=== PATIENT | female | born 1960 | race Caucasian/White ===

== ENCOUNTER 2020-03-21 18:43 | IRF | payer OTHER, SELFPAY ==
--- NOTE | ~2020-03-21 | US_ITS ---
EXAMINATION: US venous doppler [facility] DATE: 03/29/2020 18:10 INDICATION: Lower limb pain and swelling TECHNIQUE: Grayscale ultrasound images without and with compression and Doppler ultrasound images of the bilateral lower extremity veins were obtained. COMPARISON: None. FINDINGS: The visualized portions of right common femoral vein, profunda (deep) femoral vein, femoral vein, pop liteal vein, posterior tibial veins, peroneal veins, gastrocnemius vein and greater saphenous vein ou tflow are patent. The visualized portions of left common femoral vein, profunda femoral vein, femoral vein, popliteal v ein, gastrocnemius vein and greater saphenous vein outflow are patent. The veins at the left calf wer e unable to be visualized due to bandaging material. IMPRESSION: 1. No deep venous thrombosis in either lower limb. Reviewed, dictated and finalized at location A.
--- NOTE | ~2020-03-21 | XR_ITS ---
XR chest 1V portable 03/23/2020 21:20 Indication: Chest pain and shortness of breath Procedure: AP portable chest Comparison: No prior studies for comparison. Findings: Heart size is normal. No focal air space disease, pulmonary edema, pleural effusion or susp ected pneumothorax. There are Cheng rods in the lower thoracic spine. Chronic healed left rib fr acture. Impression: 1: No acute cardiopulmonary disease. Reviewed, dictated and finalized at location A. Impression: 1: No acute cardiopulmonary disease.
--- NOTE | ~2020-03-21 | US_ITS ---
US renal BI DATE: 03/31/2020 12:24 INDICATION: Elevated serum creatinine TECHNIQUE: Real-time imaging of the kidneys and urinary bladder COMPARISON: None FINDINGS: Right kidney measures approximately 11 cm length, left kidney approximately 10 cm length. There is generalized parenchymal thinning of the kidneys consistent with bilateral renal atrophy. No evidence of renal mass lesion is detected. There is no hydronephrosis of either kidney. IMPRESSION: No evidence of obstructive uropathy Bilateral renal atrophy Reviewed, dictated and finalized at Location A. Reviewed, dictated and finalized at location A.
[2020-03-21 18:44] VITALS: BP 127/58; PULSE 66; RESP 17; TEMP 36.8; O2SAT 100; BMI 33.0
--- NOTE | 2020-03-21 18:53 | ADMGEN ---
This patient, Mckenzie Guevara, was admitted to [facility] Room 226-01. Patient/family oriented to hospital policies and general routines including ID bracelet, bed and alarms, visiting hours, pain management, procedures, bathroom and other care routines, personal items, smoking policy, room service/diet, and visiting hours. Valuables list has been completed. Information on how to activate the Rapid Response Team has been discussed. Patient/Family are encouraged to report perceived risks to care and to ask questions if they do not understand what they are told or what they should do.
[2020-03-21] MEDS: ALPRAZOLAM 0.5 MG TABLET 1 MG PO (21:00)
[2020-03-21] MEDS: SENNA/DOCUSATE SODIUM TABLET 1 TAB PO (21:01)
[2020-03-21] MEDS: FERROUS SULFATE 324 MG TABLET PO (21:02)
[2020-03-21] MEDS: INSULIN GLARGINE (*BKC) 100 UNITS/ML 24 UNITS SUB-Q (21:03)
[2020-03-21 21:18] LABS: Glucose Point of Care 195 (65-105)
[2020-03-21 22:00] VITALS: BP 125/69; PULSE 68; RESP 18; TEMP 37; O2SAT 98
[2020-03-22 04:38] LABS: Basophils Absolute Auto 0.1 K/mm3 (0.0-0.1); Basophils Percent Auto 0.8 % (0.2-1.2); Eosinophils Absolute Auto 0.9 K/mm3 (0-0.3); Eosinophils Percent Auto 9.1 % (0-4.4); Hematocrit 28.9 % (37.0-47.0); Hemoglobin 8.5 g/dL (12.0-15.0); Immature Granulocyte Absolute 0.11 K/mm3 (0.00-0.031); Immature Granulocyte Percent A 1.1 % (0-0.5); Lymphocytes Absolute Auto 4.54 K/mm3 (0.9-3.2); Lymphocytes Percent Auto 45.4 % (18.3-44.2); Mean Corpuscular HGB Conc 29.4 g/dl (32-36); Mean Corpuscular Hemoglobin 24.9 pg (26-34); Mean Corpuscular Volume 84.8 fl (80-100); Mean Platelet Volume 10.9 fl (7.4-10.4); Monocytes Percent Auto 9.7 % (2.6-8.5); Neutrophils Absolute Auto 3.4 K/mm3 (1.3-6.7); Neutrophils Percent Auto 33.9 % (45.5-73.1); Platelet Count Result 307 k/mm3 (150-375); Red Blood Count 3.41 M/mm3 (4.2-5.4); Red Cell Distribution Width 15.6 % (11.5-14.5)
[2020-03-22 04:49] LABS: Blood Urea Nitrogen 37 mg/dL (7-17); Calcium 8.3 mg/dL (8.4-10.2); Carbon Dioxide 27 mmol/L (22-30); Chloride 109 mmol/L (98-107); Estimated CRCL calculation 41 ml/min; Estimated Glomerular Filt Rate 29; Glucose 184 mg/dL (65-105); Potassium 4.4 mmol/L (3.4-5.0); Sodium 139 mmol/L (137-145)
[2020-03-22 06:00] VITALS: BP 131/72; PULSE 57; RESP 18; TEMP 36.6; O2SAT 97
[2020-03-22] MEDS: LEVOTHYROXINE SODIUM 75 MCG TABLET PO (06:42)
[2020-03-22 07:04] LABS: Glucose Point of Care 133 (65-105)
[2020-03-22] MEDS: FERROUS SULFATE 324 MG TABLET PO (09:15)
[2020-03-22] MEDS: FLUOXETINE HCL 20 MG CAP PO (09:15)
[2020-03-22] MEDS: MIRTAZAPINE 30 MG TABLET PO (09:15)
--- NOTE | 2020-03-22 10:30 | WPDREHABHP ---
H&P: HPI History of Present Illness Chief complaint: L BKA Narrative: Saba Guevara is a 59 year old female HISTORY OF PRESENT ILLNESS: The patient's primary rehab impairment category is 10/amputation/lower extremity Status post amputation left [id number] left BKA The etiologic diagnosis is osteomyelitis left foot I saw this patient [id number] on March 22, 2020 at 10:30 a.m. The patient is a 59-year-old white woman with a past medical history of diabetes with peripheral neuropathy, hypertension, gastroesophageal reflux disease who presented to [facility] on March 05, 2020 why EMS with complaints of worsening pain symptoms in her left foot. The patient has gradually increased with development of a rash swelling and tenderness on the distal portion of the left leg and foot the open wounds have begun to develop discharge over the past previous week. The pain was rated at 7/10. Imaging showed prominent decreased density over the remainder of the distal 3rd metatarsal highly indicative of osteomyelitis. She was started on IV antibiotics. Vascular surgery was consulted and felt the limb was not salvageable. She underwent a left [id number] amputation March 08, 2020 by . Postoperatively the patient has experienced acute postoperative pain, acute blood-loss anemia, acute on chronic kidney disease, hyperkalemia and hypertension. She also experienced a left knee flexion contracture. Six months ago the patient saw Dr. Fonseca in [facility] for cord sepsis tendon rupture and was waiting for her bacteremia to his wall before proceeding with the tendon repair. Orthopedic surgery was consulted and the patient underwent quadriceps tendon repair with straight leg cast application on March 21, [address] Roberts. She is nonweightbearing to the left lower extremity and is to keep knee fully extended whenever there is wait placed on left lower extremity. The dressings to be changes appropriate for the [id number] amputation. The pain is being controlled with oral injects it and she will be discharged to rehab on Lovenox for DVT prophylaxis. The patient has not traveled outside of the use or had contact with someone who is ill that has traveled outside the [place] in the past 21 days. The patient has not trouble to an area of the [place] that is experiencing noon transmission of the Coronavirus and has not had close personal contact with anyone that has. The patient does not have a fever and the patient does not have any low respiratory illness symptoms. The patient was tested for COVID-19 on March 15, 2020 and it was negative Therapy was initiated at the acute care facility and the patient transferred to us from [facility] on March 21, 2020 on FALLS OR SURGERIES: The patient has had major surgeries in the 100 days prior to admission. They had falls in the past year. They had falls with injury in the past year. patient had multiple falls in the past year PAST MEDICAL HISTORY: hypertension hypothyroidism GERD peripheral neuropathy depression diabetes mellitus and narcotic dependent and chronic back pain plus chronic pain syndrome /narcotic dependent / sees pain Pain Management in the [facility] PAST SURGICAL HISTORY: tonsillectomy appendectomy right great toe amputation, 2nd digit right foot amputation, , back surgery. SOCIAL HISTORY: The patient lives with her roommate (for the last 15 years) in a 1 level home with a ramp entrance. The patient was independent with ADLs ) dressing sponge bathing, toileting) FAMILY HISTORY: maternal grandmother had cancer. Mother with pancreatic cancer. PRIOR LEVEL OF FUNCTION: Eating was INDEPENDENT Oral Care was INDEPENDENT Toileting Hygiene was INDEPENDENT Shower/Bathing was INDEPENDENT Upper Body Dressing was INDEPENDENT Lower Body Dressing was INDEPENDENT Donning/[place] Footwear was INDEPENDENT Rolling Left and Right was INDEPENDENT Sit to L
[2020-03-22 12:17] LABS: Glucose Point of Care 166 (65-105)
[2020-03-22 12:57] VITALS: BMI 33.0
[2020-03-22 14:00] VITALS: BP 104/62; PULSE 68; RESP 16; TEMP 36.9; O2SAT 93
[2020-03-22 14:40] VITALS: BMI 33.0
--- NOTE | 2020-03-22 15:42 | RPD ---
INDIVIDUALIZED PLAN OF CARE FOR Saba Guevara Brief Synthesis of Pre-Admission Screen, Post-Admission Evaluation and Therapy Evaluations: The patient presents to rehab with osteomyelitis of the left foot. Comorbidities include hypertension, gastroesophageal reflux disease, peripheral neuropathy, depression, diabetes mellitus, acute on chronic renal failure, hyperkalemia, left leg swelling, obesity, acute postoperative pain, acute blood loss anemia.The patient requires physician services for medical oversight, management of post-op complications in the setting of present comorbidities, management of diabetes mellitus diagnosis, and pain management. The patient requires nursing services for anticoagulation therapy, diabetes training, DVT prophylactics, IV administration, infection protection, medication management and education, pressure relief, and wound care. Deficits include:ADLs, Balance, Endurance, Family Training/Education, Mobility, Pain Management, ROM, Safety, Strength, Transfers Patient Service Representative/Case Management for: Discharge Planning and Patient/Family Counseling Physical Therapy: 5 days per week for 90 minutes. Treatments may include: Therapeutic Exercise, Gait Training, Neuromuscular Re-education, Transfer Training, Community Reintegration, Bed Mobility, Patient/Family Education, Wheelchair Mobility Group Therapy/Concurrent Therapy Rationales: -Improve attention span during functional activities in a distracted environment. -Enhance problem solving and/or adequate judgment skills during functional activities in a distracted environment. -Promote increased safety awareness in a distracted environment to reduce fall risk with functional tasks, transfers, and ambulation to allow a more safe, self-sufficient return to the home environment. -Improve dynamic balance skills to promote safety and independence with functional activities in a distracted environment for maximum gain. Occupational Therapy: 5 days per week for 90 minutes. Treatments may include: Therapeutic Exercise, Therapeutic Activity, Cognitive Training, Self-Care Transfer Training, Community Reintegration, Home Management, Patient/Family Education, Wheelchair Mobility Training, Energy Conservation Training Group Therapy/Concurrent Therapy Rationales: -Allow therapist to observe and teach generalization and carry-over of skills learned in individual therapy. -Enhance problem solving and sequencing skills during therapeutic activities in a distracted environment. -Promote increased safety awareness in a realistic setting to reduce fall risk with functional tasks due to visual and verbal distractions. -Increase functional level with ADLs, ADL transfers and use of adaptive equipment through therapeutic activities with others while promoting safety to allow a more safe, self-sufficient return home. Medical Prognosis: Good Anticipated Length of Stay: 12 days Rehab Goals: Eating Goal: 06-Independent Oral Hygiene Goal: 09-Not Applicable Toileting Hygiene Goal: 06-Independent Shower/Bathe Self Goal: 05-Setup or Clean Up Assistance Upper Body Dressing Goal: 06-Independent Lower Body Dressing Goal: 06-Independent Putting On/Taking Off Footwear Goal: 06-Independent Rolling Left and Right Goal: 06-Independent Sit to Lying Goal: 06-Independent Lying to Sitting on Side of Bed Goal: 06-Independent Sit to Stand Goal: 06-Independent Chair/Xkm-fh-Toutb Transfer Goal: 06-Independent Toilet Transfer Goal: 06-Independent Car Transfer Goal: 06-Independent Walk 10' Goal: 06-Independent Walk 50' with Two Turns Goal: 03-Partial/Moderate Assistance Walk 150' Goal: 09-Not Applicable Walk 10' on Uneven Surface Goal: 04-Supervision or Touching Assistance 1 Step (Curb) Goal: 01-Dependent 4 Steps Goal: 09-Not Applicable 12 Steps Goal Score: 09-Not Applicable Picking Up Object Goal: 03-Partial/Moderate Assistance Wheel 50' with Two Turns Score: 06-Independent Wheel 150' Goal: 06-Independent Anticipated d
[2020-03-22 16:54] LABS: Glucose Point of Care 174 (65-105)
[2020-03-22] MEDS: ENOXAPARIN 40 MG/0.4 ML SYRINGE SUB-Q (20:32)
[2020-03-22] MEDS: INSULIN GLARGINE (*BKC) 100 UNITS/ML 24 UNITS SUB-Q (20:34)
[2020-03-22] MEDS: SENNA/DOCUSATE SODIUM TABLET 1 TAB PO (20:41)
[2020-03-22 21:42] VITALS: BP 116/56; PULSE 61; RESP 16; TEMP 36.9; O2SAT 96
[2020-03-23 05:07] LABS: Glucose Point of Care 227 (65-105)
[2020-03-23 05:59] VITALS: BP 141/65; PULSE 62; RESP 18; TEMP 36.6; O2SAT 100
[2020-03-23 06:03] LABS: Glucose Point of Care 142 (65-105)
[2020-03-23] MEDS: LEVOTHYROXINE SODIUM 75 MCG TABLET PO (06:16)
[2020-03-23] MEDS: ENOXAPARIN 40 MG/0.4 ML SYRINGE SUB-Q ×2 (09:49→21:01)
[2020-03-23] MEDS: FERROUS SULFATE 324 MG TABLET PO (09:49)
[2020-03-23] MEDS: MIRTAZAPINE 30 MG TABLET PO (09:49)
[2020-03-23] MEDS: FLUOXETINE HCL 20 MG CAP PO (09:50)
[2020-03-23 12:59] LABS: Glucose Point of Care 184 (65-105)
[2020-03-23 14:00] VITALS: BP 101/47; PULSE 65; RESP 18; TEMP 36.7; O2SAT 93
--- NOTE | 2020-03-23 16:02 | WPDNEURORHBP ---
Subjective Date/time seen: 03/23/20 16:02 Interval history: this 59-year-old overweight a diabetic woman is here after having and left BKA for the left foot gangrene. Her pain control is better she is sleeping better engage in therapy she denies any headache nausea vomiting chest pain shortness of breath fever chills sore throat Review of Systems Review of Systems: All systems reviewed & are unremarkable except as noted in HPI and below Functional Status Ambulation Ability Ambulation Assistive Devices: Parallel Bars Transfers Ability Ability to Transfer In/Out of Chair: Moderate Assistance X 1 Exam Const: General: comfortable and no acute distress HENMT: General nose exam: Normal nares present Mouth: Yes moist mucous membranes Eyes: General: appearance normal, both eyes and all related structures Neck: Neck: supple and no JVD Resp: Effort & Inspection: normal respiratory effort Auscultation: clear to auscultation bilaterally Cardio: Rate: regular rate Rhythm: regular rhythm GI: GI Palp: Yes Soft to palpation Auscultation: normal bowel sounds Skin: General skin exam: normal color and no rashes or lesions noted Neuro: Other: patient is awake and alert well oriented has normal speech and language functions normal cranial examination generalized weakness of the lower extremities more so than the event than the upper extremities and evidence of the pants sensory more than motor neuropathy Extrem: Other: evidence of peripheral neuropathy and the left BKA Psych: Mental Status: mental status grossly normal Objective Data Vital Signs Vital Signs: Vital Signs - 24 hr 03/22/20 21:42 03/23/20 05:59 03/23/20 14:00 Temperature 36.9 C 36.6 C 36.7 C Pulse Rate 61 62 65 Respiratory Rate 16 18 18 Blood Pressure 116/56 L 141/65 H 101/47 L Pulse Oximetry 96 100 93 Intake/Output Intake/Output: Intake & Output 03/20/20 03/21/20 03/22/20 03/23/20 23:59 23:59 23:59 23:59 Intake Total 1460 960 Balance 1460 960 Meds/Results Medications: Active Medications Generic Name Dose Route Start Last Admin Trade Name Freq PRN Reason Stop Dose Admin Alprazolam 1 mg 03/21/20 19:25 03/21/20 21:00 Xanax PO 1 mg TID PRN Administration Anxiety Dextrose 12.5 gm 03/21/20 18:59 Dextrose 50% Syringe IV PUSH PRN PRN Hypoglycemia Protocol Enoxaparin Sodium 40 mg 03/22/20 21:00 03/23/20 09:49 Lovenox SUB-Q 40 mg Q12HR SULTANA Administration Ferrous Sulfate 324 mg 03/21/20 21:00 03/23/20 09:49 Ferrous Sulfate PO 324 mg DAILY SULTANA Administration Fluoxetine HCl 20 mg 03/22/20 09:00 03/23/20 09:50 Prozac PO 20 mg DAILY SULTANA Administration Glucagon 1 mg 03/21/20 18:59 Glucagon For Inj IM PRN PRN Hypoglycemia Protocol Glucose 15 gm 03/21/20 18:59 Glutose 15 PO PRN PRN Hypoglycemia Protocol Dextrose 1,000 mls @ 100 mls/hr 03/21/20 18:59 Dextrose 5% 1,000 Ml IVPB PRN PRN Hypoglycemia Protocol Insulin Aspart 4 - 8 units 03/22/20 08:00 03/23/20 12:55 Novolog SUB-Q Not Given TIDWM [facility] Protocol Insulin Glargine 24 units 03/21/20 21:00 03/22/20 20:34 Lantus SUB-Q 24 units HS SULTANA Administration Levothyroxine Sodium 75 mcg 03/22/20 06:30 03/23/20 06:16 Synthroid PO 75 mcg DAILY@0630 SULTANA Administration Mirtazapine 30 mg 03/22/20 09:00 03/23/20 09:49 Remeron PO 30 mg DAILY SULTANA Administration Oxycodone HCl 30 mg 03/21/20 21:00 03/23/20 09:48 Oxycontin Sr 12hr PO 30 mg Q12HR SULTANA Administration Oxycodone/Acetaminophen 1 tablet 03/22/20 12:00 03/23/20 13:01 Percocet 5-325 Mg PO 1 tablet 1200,1600 SULTANA Administration Senna/Docusate Sodium 1 tab 03/21/20 21:00 03/22/20 20:41 Senokot S Tablet PO 1 tab HS SULTANA Administration Trimethoprim/Sulfamethoxazole 1 tab 03/21/20 21:00 03/23/20 09:51 Septra Ds PO 04/13/20 21
[2020-03-23 17:42] LABS: Glucose Point of Care 200 (65-105)
[2020-03-23 20:00] VITALS: BP 131/70; PULSE 66; RESP 20; TEMP 37.2; O2SAT 97
--- NOTE | 2020-03-23 20:52 | ECG_ITS ---
Measurements Intervals [place] Rate: 62 P: 12 OR: 185 QRS: 3 QRSD: 86 T: 13 QT: 453 QTc: 462 Interpretive Statements SINUS RHYTHM BORDERLINE T WAVE ABNORMALITY- INFERIOR LEADS BORDERLINE ECG Electronically Signed On 03-24-2020 7:29:46 CDT by Nacho Redmond D.O.
[2020-03-23] MEDS: SENNA/DOCUSATE SODIUM TABLET 1 TAB PO (21:01)
[2020-03-23] MEDS: INSULIN GLARGINE (*BKC) 100 UNITS/ML 24 UNITS SUB-Q (21:04)
[2020-03-23 21:46] LABS: Glucose Point of Care 226 (65-105)
[2020-03-23 21:54] LABS: Troponin I < 0.012 ng/mL (0.000-0.034)
[2020-03-23] MEDS: ALPRAZOLAM 0.5 MG TABLET 1 MG PO (22:38)
--- NOTE | 2020-03-24 00:18 | PC.NURSE ---
03/23/202044 pt C/O Chest pressure & mild SOB on room air. V/S 98.9 HR 64 resp 20 sat97% with B/P 131/70. Dr Rowan notified & orders received.
[2020-03-24 00:20] LABS: Troponin I < 0.012 ng/mL (0.000-0.034)
[2020-03-24 06:00] VITALS: BP 102/50; PULSE 58; RESP 16; TEMP 36.8; O2SAT 96
[2020-03-24] MEDS: LEVOTHYROXINE SODIUM 75 MCG TABLET PO (06:11)
[2020-03-24 07:00] LABS: Glucose Point of Care 100 (65-105)
[2020-03-24] MEDS: MIRTAZAPINE 30 MG TABLET PO (08:29)
[2020-03-24] MEDS: FERROUS SULFATE 324 MG TABLET PO (08:29)
[2020-03-24] MEDS: FLUOXETINE HCL 20 MG CAP PO (08:29)
[2020-03-24] MEDS: ENOXAPARIN 40 MG/0.4 ML SYRINGE SUB-Q ×2 (09:59→21:05)
[2020-03-24 12:50] LABS: Glucose Point of Care 152 (65-105)
[2020-03-24 14:00] VITALS: BP 91/53; PULSE 62; RESP 18; TEMP 36.8; O2SAT 95
[2020-03-24 17:18] LABS: Glucose Point of Care 162 (65-105)
--- NOTE | 2020-03-24 18:35 | WPDNEURORHBP ---
Subjective Date/time seen: 03/24/20 18:35 Interval history: this 59-year-old overweight woman who is a diabetic and has suffered from chronic pain in her lower back for many years came to us after having had left BKA has evidence of peripheral neuropathy and also peripheral vascular disease diabetes has affected her visual acuity also I suspect diabetic retinopathy she is complaining of more pain asking for bone medications however I know her very well that she has been a drug seek her in the past and I am trying to restrain giving her a lot more medication was she is going through the rehab Last night she had some chest discomfort however the workup we did quite negative and do not believe it was a cardiac origin needing pain She denies any headache nausea vomiting chest pain shortness of breath fever chills or sore throat Review of Systems Review of Systems: All systems reviewed & are unremarkable except as noted in HPI and below Functional Status Ambulation Ability Ambulation Assistive Devices: Parallel Bars Transfers Ability Ability to Transfer In/Out of Chair: Moderate Assistance X 1 Exam Const: General: comfortable and no acute distress HENMT: General nose exam: Normal nares present Mouth: Yes moist mucous membranes Eyes: General: appearance normal, both eyes and all related structures Neck: Neck: supple and no JVD Resp: Effort & Inspection: normal respiratory effort Auscultation: clear to auscultation bilaterally Cardio: Rate: regular rate Rhythm: regular rhythm GI: GI Palp: Yes Soft to palpation Auscultation: normal bowel sounds Skin: General skin exam: normal color and no rashes or lesions noted Neuro: Other: patient is awake and alert well oriented not in any distress as evidence of peripheral neuropathy and peripheral vascular disease and needs assistance all the activities of daily living Extrem: Other: left BKA clean Psych: Mental Status: mental status grossly normal Objective Data Vital Signs Vital Signs: Vital Signs - 24 hr 03/23/20 20:00 03/24/20 06:00 03/24/20 14:00 Temperature 37.2 C 36.8 C 36.8 C Pulse Rate 66 58 L 62 Respiratory Rate 20 16 18 Blood Pressure 131/70 102/50 L 91/53 L Pulse Oximetry 97 96 95 Intake/Output Intake/Output: Intake & Output 03/21/20 03/22/20 03/23/20 03/24/20 23:59 23:59 23:59 23:59 Intake Total 1460 1440 720 Balance 1460 1440 720 Meds/Results Medications: Active Medications Generic Name Dose Route Start Last Admin Trade Name Freq PRN Reason Stop Dose Admin Alprazolam 1 mg 03/21/20 19:25 03/23/20 22:38 Xanax PO 1 mg TID PRN Administration Anxiety Dextrose 12.5 gm 03/21/20 18:59 Dextrose 50% Syringe IV PUSH PRN PRN Hypoglycemia Protocol Enoxaparin Sodium 40 mg 03/22/20 21:00 03/24/20 09:59 Lovenox SUB-Q 40 mg Q12HR SULTANA Administration Ferrous Sulfate 324 mg 03/21/20 21:00 03/24/20 08:29 Ferrous Sulfate PO 324 mg DAILY SULTANA Administration Fluoxetine HCl 20 mg 03/22/20 09:00 03/24/20 08:29 Prozac PO 20 mg DAILY SULTANA Administration Glucagon 1 mg 03/21/20 18:59 Glucagon For Inj IM PRN PRN Hypoglycemia Protocol Glucose 15 gm 03/21/20 18:59 Glutose 15 PO PRN PRN Hypoglycemia Protocol Dextrose 1,000 mls @ 100 mls/hr 03/21/20 18:59 Dextrose 5% 1,000 Ml IVPB PRN PRN Hypoglycemia Protocol Insulin Aspart 4 - 8 units 03/22/20 08:00 03/24/20 17:49 Novolog SUB-Q Not Given TIDWM [facility] Protocol Insulin Glargine 24 units 03/21/20 21:00 03/23/20 21:04 Lantus SUB-Q 24 units HS SULTANA Administration Levothyroxine Sodium 75 mcg 03/22/20 06:30 03/24/20 06:11 Synthroid PO 75 mcg DAILY@0630 SULTANA Administration Mirtazapine 30 mg 03/22/20 09:00 03/24/20 08:29 Remeron PO 30 mg DAILY SULTANA Administration Oxycodone HCl 30 mg 03/21/20 21:00 03/24/20 08:28 Oxycontin Sr 12hr PO
[2020-03-24] MEDS: SENNA/DOCUSATE SODIUM TABLET 1 TAB PO (21:04)
[2020-03-24] MEDS: INSULIN GLARGINE (*BKC) 100 UNITS/ML 24 UNITS SUB-Q (21:08)
[2020-03-24 21:44] LABS: Glucose Point of Care 200 (65-105)
[2020-03-24 22:02] VITALS: BP 104/46; PULSE 63; RESP 20; TEMP 37; O2SAT 97
[2020-03-25 06:00] VITALS: BP 109/70; PULSE 63; RESP 16; TEMP 36.9; O2SAT 97
[2020-03-25] MEDS: LEVOTHYROXINE SODIUM 75 MCG TABLET PO (06:42)
[2020-03-25 06:49] LABS: Glucose Point of Care 169 (65-105)
[2020-03-25] MEDS: ENOXAPARIN 40 MG/0.4 ML SYRINGE SUB-Q ×2 (09:00→20:33)
[2020-03-25] MEDS: MIRTAZAPINE 30 MG TABLET PO (09:01)
[2020-03-25] MEDS: FERROUS SULFATE 324 MG TABLET PO (09:01)
[2020-03-25] MEDS: FLUOXETINE HCL 20 MG CAP PO (09:01)
--- NOTE | 2020-03-25 10:51 | WPDNEURORHBP ---
Subjective Date/time seen: Diabetic withLBKA for osteomyelitis of left foot03/25/20 10:51 Review of Systems Review of Systems: All systems reviewed & are unremarkable except as noted in HPI and below Functional Status Ambulation Ability Ambulation Assistive Devices: Parallel Bars Transfers Ability Ability to Transfer In/Out of Chair: Moderate Assistance X 1 Exam Const: General: cooperative, awake and in distress Nutritional Appearance: obese Orientation/consciousness: oriented to person, oriented to place and patient oriented x3 Limitations: behavioral limitations and physical limitations HENMT: Head: normal to inspection Mouth: Yes Normal oral and palatal mucosa present Eyes: Alignment and Position: alignment normal Periorbital: periorbital findings normal Eyelids: eyelids normal Conjunctivae: conjunctivae normal Sclera: sclerae normal Cornea: corneas normal EOM: EOMs intact bilaterally Neck: Neck: full ROM Resp: Effort & Inspection: normal respiratory effort and able to speak in complete sentences Auscultation: clear to auscultation bilaterally Cardio: Rhythm: abnormal rhythm GI: Auscultation: normal bowel sounds Skin: General skin exam: no rashes or lesions noted Neuro: General: patient oriented x3, moves all extremities and CN's II-XI intact bilaterally Cranial nerves: Yes CN's II-XII intact bilaterally, Yes Equal, round and reactive pupils present, Yes Nystagmus not present, Yes facial symmetry, Yes Midline tongue present, Yes Symmetric palate elevation present, Yes Ability to bilaterally rotate head present and Yes Ability to bilaterally elevate shoulders present Cognition (Neuro): normal cognition Speech: normal speech Gait exam (Neuro): Unable to assess gait Motor exam (neuro): Abnormal motor strength present Sensory Exam: Sensory deficit (Neuro) Plantar Reflex Responses: downgoing: right Extrem: General: normal to inspection Psych: Appearance: grossly normal Objective Data Vital Signs Vital Signs: Vital Signs - 24 hr 03/24/20 14:00 03/24/20 22:02 03/25/20 06:00 Temperature 36.8 C 37.0 C 36.9 C Pulse Rate 62 63 63 Respiratory Rate 18 20 16 Blood Pressure 91/53 L 104/46 L 109/70 Pulse Oximetry 95 97 97 Intake/Output Intake/Output: Intake & Output 03/22/20 03/23/20 03/24/20 03/25/20 23:59 23:59 23:59 23:59 Intake Total 1460 1440 720 100 Balance 1460 1440 720 100 Meds/Results Medications: Active Medications Generic Name Dose Route Start Last Admin Trade Name Freq PRN Reason Stop Dose Admin Alprazolam 1 mg 03/21/20 19:25 03/23/20 22:38 Xanax PO 1 mg TID PRN Administration Anxiety Dextrose 12.5 gm 03/21/20 18:59 Dextrose 50% Syringe IV PUSH PRN PRN Hypoglycemia Protocol Enoxaparin Sodium 40 mg 03/22/20 21:00 03/25/20 09:00 Lovenox SUB-Q 40 mg Q12HR SULTANA Administration Ferrous Sulfate 324 mg 03/21/20 21:00 03/25/20 09:01 Ferrous Sulfate PO 324 mg DAILY SULTANA Administration Fluoxetine HCl 20 mg 03/22/20 09:00 03/25/20 09:01 Prozac PO 20 mg DAILY SULTANA Administration Glucagon 1 mg 03/21/20 18:59 Glucagon For Inj IM PRN PRN Hypoglycemia Protocol Glucose 15 gm 03/21/20 18:59 Glutose 15 PO PRN PRN Hypoglycemia Protocol Dextrose 1,000 mls @ 100 mls/hr 03/21/20 18:59 Dextrose 5% 1,000 Ml IVPB PRN PRN Hypoglycemia Protocol Insulin Aspart 4 - 8 units 03/22/20 08:00 03/25/20 09:01 Novolog SUB-Q Not Given T[facility] Protocol Insulin Glargine 24 units 03/21/20 21:00 03/24/20 21:08 Lantus SUB-Q 24 units HS SULTANA Administration Levothyroxine Sodium 75 mcg 03/22/20 06:30 03/25/20 06:42 Synthroid PO 75 mcg DAILY@0630 SULTANA Administration Mirtazapine 30 mg 03/26/20 21:00 Remeron PO HS SULTANA Oxycodone HCl 30 mg 03/21/20 21:00 03/25/20 09:01 Oxycontin Sr 12hr PO 30 mg Q12HR SULTANA Administration
[2020-03-25 12:14] LABS: Glucose Point of Care 99 (65-105)
--- NOTE | 2020-03-25 12:56 | WPDURCON ---
Assessment and Plan Assessment and plan (1) Dysuria: Code(s): R30.0 - Dysuria Status: Acute Assessment and Plan: Collect UA sample and call with results, reflex to culture if suspicious for infection Will plan to start antibiotics if UA is positive. (2) Incontinence: Code(s): R32 - Unspecified urinary incontinence Status: Acute Assessment and Plan: Bladder scan patient to rule out overflow incontinence or urinary retention. Call with results [phone]. Urology Consult Note HPI Date Seen: 03/25/20 Requesting Physician: George Rowan MD Primary Care Provider: UNKNOWN,DOCTOR Consult Narrative Narrative: Saba Guevara is a 59 year old female who is admitted to rehab s/p BKA on 03/08/2020 at [facility]. She states that she started having urinary incontinence a few days ago since she was admitted here for rehab on 03/22/2020. This is also accompanied by dysuria and suprapubic pain. She denies hematuria, foul smelling urine, flank pain, fever, chills, nausea or vomiting. She has not ever had incontinence prior to this hospitalization or difficulty with urination. A UA has been ordered but not completed yet. She is currently afebrile. Review of Systems Cardiovascular: Cardiovascular: Denies chest pain Respiratory: Respiratory: Reports no additional respiratory complaints Gastrointestinal: Gastrointestinal: Reports abdominal pain, Denies nausea and Denies vomiting Genitourinary: Genitourinary: Denies hematuria, Reports dysuria and Denies flank pain PMFSH Past Medical History Medical History Chronic pain syndrome Diabetes mellitus Diabetic neuropathy Narcotic dependence Osteomyelitis of left foot Family History Family History Grandparent Cancer Mother Pancreatic cancer Social History Social History Smoking status: Never smoker Second hand tobacco smoke exposure: No Alcohol intake: never Substance use: never Substance use type: does not use Gender identity (if verbalized by the patient): Female Spiritual care concerns: No Meds Home Medications and Allergies Home Medications Medication Instructions Recorded Confirmed Type alprazolam 1 mg PO TID PRN 03/21/20 03/21/20 History ferrous sulfate 325 mg PO DAILY 03/21/20 03/21/20 History fluoxetine 20 mg PO DAILY 03/21/20 03/21/20 History insulin glargine 24 unit SUBCUT 03/21/20 03/21/20 History levothyroxine 75 mcg PO DAILY 03/21/20 03/21/20 History mineral oil [Fleet Mineral Oil] 118 ml NE DAILY PRN 03/21/20 03/21/20 History mirtazapine 30 mg PO DAILY 03/21/20 03/21/20 History oxycodone 30 mg PO Q12H 03/21/20 03/21/20 History sennosides-docusate sodium 1 tab-cap PO 03/21/20 03/21/20 History sulfamethoxazole-trimethoprim 1 tablet PO Q12H 03/21/20 03/21/20 History Allergies Allergy/AdvReac Type Severity Reaction Status Date / Time No Known Allergies Allergy Verified 03/21/20 19:14 Vital Signs Vital Signs - 24 hr 03/24/20 14:00 03/24/20 22:02 03/25/20 06:00 Temperature 98.2 F 98.6 F 98.4 F Pulse Rate 62 63 63 Respiratory Rate 18 20 16 Blood Pressure 91/53 L 104/46 L 109/70 Pulse Oximetry 95 97 97 Exam Resp: Effort & Inspection: normal respiratory effort Cardio: Rate: regular rate GI: GI Palp: Yes abdominal tenderness : General: Yes CVA tenderness not on the right and not on the left Results Labs CBC & Chem 7: 03/22/20 04:29 03/22/20 04:29
[2020-03-25 14:00] VITALS: BP 109/46; PULSE 72; RESP 16; TEMP 36.9; O2SAT 94
[2020-03-25 15:03] LABS: Add Urine Microscopic? YES; Amorphous Sediment Urine Few; Appearance Urine Cloudy (Clear); Bacteria Urine Trace /hpf; Bilirubin Urine Negative (Negative); Blood Urine Negative (Negative); Color Urine Yellow (Yellow); Glucose Urine UA Negative (Negative); Ketones Urine Negative (Negative); Leukocyte Esterase Ur 3+ LEU/UL (Negative); Nitrate Urine Positive (Negative); Protein Urine 1+ mg/dL (Negative); Specific Grav Ur 1.014 (1.001-1.035); Squamous Epithelial Cell Urine Many /hpf (Few); Urobilinogen Urine Negative mg/dL (<2.0); WBC Clumps Urine Present /HPF; WBC Urine >75 /hpf
--- NOTE | 2020-03-25 15:40 | PCPTNOTE ---
Attempted to see patient at 13:00 for PT treatment, however patient refused to participate with therapy. Patient states that she is in too much pain and will try later once her pain pill has had time to work. Patient refused all therapeutic activity at this time. Corine Silva, GUIDE CRUISE
[2020-03-25 17:28] LABS: Glucose Point of Care 118 (65-105)
[2020-03-25] MEDS: NITROFURANTOIN MONOHYD MACROCR 100 MG CAP PO (20:33)
[2020-03-25] MEDS: SENNA/DOCUSATE SODIUM TABLET 1 TAB PO (20:34)
[2020-03-25] MEDS: INSULIN GLARGINE (*BKC) 100 UNITS/ML 24 UNITS SUB-Q (21:18)
[2020-03-25 21:21] LABS: Glucose Point of Care 134 (65-105)
[2020-03-25] MEDS: ALPRAZOLAM 0.5 MG TABLET 1 MG PO (21:43)
[2020-03-25 21:45] VITALS: BP 103/66; PULSE 57; RESP 20; TEMP 36.9; O2SAT 97
[2020-03-26 06:00] VITALS: BP 109/47; PULSE 57; RESP 20; TEMP 36.6; O2SAT 98
[2020-03-26] MEDS: LEVOTHYROXINE SODIUM 75 MCG TABLET PO (06:01)
[2020-03-26 06:16] LABS: Glucose Point of Care 75 (65-105)
[2020-03-26] MEDS: ENOXAPARIN 40 MG/0.4 ML SYRINGE SUB-Q ×2 (09:04→21:12)
[2020-03-26] MEDS: NITROFURANTOIN MONOHYD MACROCR 100 MG CAP PO ×2 (09:05→21:13)
[2020-03-26] MEDS: FERROUS SULFATE 324 MG TABLET PO (09:05)
[2020-03-26] MEDS: FLUOXETINE HCL 20 MG CAP PO (09:05)
[2020-03-26 12:27] LABS: Glucose Point of Care 129 (65-105)
[2020-03-26 14:00] VITALS: BP 85/42; PULSE 64; RESP 18; TEMP 36.7; O2SAT 94
--- NOTE | 2020-03-26 14:07 | WPDNEURORHBP ---
Subjective Date/time seen: 03/26/20 14:07 Interval history: this 59-year-old diabetic overweight woman is here after having had the left BKA her diabetic control not has not passed she has been sedentary most of the time at home on has difficult time performing the therapy but engage in it after counseling plenty of it she is also on that front kind per urologist for urinary tract infection He denies any headache nausea vomiting chest pain shortness of breath fever chills sore throat Review of Systems Review of Systems: All systems reviewed & are unremarkable except as noted in HPI and below Functional Status Ambulation Ability Ambulation Assistive Devices: Parallel Bars Transfers Ability Ability to Transfer In/Out of Chair: Standby Assistance Exam Const: General: comfortable and no acute distress HENMT: General nose exam: Normal nares present Mouth: Yes moist mucous membranes Eyes: General: appearance normal, both eyes and all related structures Neck: Neck: supple and no JVD Resp: Effort & Inspection: normal respiratory effort Auscultation: clear to auscultation bilaterally Cardio: Rate: regular rate Rhythm: regular rhythm GI: GI Palp: Yes Soft to palpation Auscultation: normal bowel sounds Skin: General skin exam: normal color and no rashes or lesions noted Neuro: Other: patient is awake alert well oriented to time place and person has normal speech and language function significant peripheral neuropathy and the left BKA Extrem: Other: left BKA Psych: Mental Status: mental status grossly normal Objective Data Vital Signs Vital Signs: Vital Signs - 24 hr 03/25/20 21:45 03/26/20 06:00 Temperature 36.9 C 36.6 C Pulse Rate 57 L 57 L Respiratory Rate 20 20 Blood Pressure 103/66 109/47 L Pulse Oximetry 97 98 Intake/Output Intake/Output: Intake & Output 03/23/20 03/24/20 03/25/20 03/26/20 23:59 23:59 23:59 23:59 Intake Total 1440 720 500 480 Balance 1440 720 500 480 Meds/Results Medications: Active Medications Generic Name Dose Route Start Last Admin Trade Name Freq PRN Reason Stop Dose Admin Alprazolam 1 mg 03/21/20 19:25 03/25/20 21:43 Xanax PO 1 mg TID PRN Administration Anxiety Dextrose 12.5 gm 03/21/20 18:59 Dextrose 50% Syringe IV PUSH PRN PRN Hypoglycemia Protocol Enoxaparin Sodium 40 mg 03/22/20 21:00 03/26/20 09:04 Lovenox SUB-Q 40 mg Q12HR SULTANA Administration Ferrous Sulfate 324 mg 03/21/20 21:00 03/26/20 09:05 Ferrous Sulfate PO 324 mg DAILY SULTANA Administration Fluoxetine HCl 20 mg 03/22/20 09:00 03/26/20 09:05 Prozac PO 20 mg DAILY SULTANA Administration Glucagon 1 mg 03/21/20 18:59 Glucagon For Inj IM PRN PRN Hypoglycemia Protocol Glucose 15 gm 03/21/20 18:59 Glutose 15 PO PRN PRN Hypoglycemia Protocol Dextrose 1,000 mls @ 100 mls/hr 03/21/20 18:59 Dextrose 5% 1,000 Ml IVPB PRN PRN Hypoglycemia Protocol Insulin Aspart 4 - 8 units 03/22/20 08:00 03/26/20 12:24 Novolog SUB-Q Not Given TIDWM [facility] Protocol Insulin Glargine 24 units 03/21/20 21:00 03/25/20 21:18 Lantus SUB-Q 24 units HS [facility] Administration Levothyroxine Sodium 75 mcg 03/22/20 06:30 03/26/20 06:01 Synthroid PO 75 mcg DAILY@0630 SULTANA Administration Mirtazapine 30 mg 03/26/20 21:00 Remeron PO HS [facility] Nitrofurantoin Macrocrystals 100 mg 03/25/20 21:00 03/26/20 09:05 Macrobid PO 04/01/20 09:01 100 mg Q12HR SULTANA Administration Oxycodone HCl 30 mg 03/21/20 21:00 03/26/20 09:09 Oxycontin Sr 12hr PO 30 mg Q12HR SULTANA Administration Oxycodone/Acetaminophen 1 tablet 03/22/20 12:00 03/26/20 12:27 Percocet 5-325 Mg PO 1 tablet 1200,1600 SULTANA Administration Senna/Docusate Sodium 1 tab 03/21/20 21:00 03/25/20 20:34 Senokot S Tablet PO 1 tab HS SUL[facility]NA Administration Trimethoprim/Sulfamethoxazole
[2020-03-26 17:27] LABS: Glucose Point of Care 114 (65-105)
[2020-03-26] MEDS: SENNA/DOCUSATE SODIUM TABLET 1 TAB PO (21:00)
[2020-03-26] MEDS: MIRTAZAPINE 30 MG TABLET PO (21:15)
[2020-03-26] MEDS: INSULIN GLARGINE (*BKC) 100 UNITS/ML 24 UNITS SUB-Q (21:16)
[2020-03-26 21:39] LABS: Glucose Point of Care 134 (65-105)
[2020-03-26 22:00] VITALS: BP 100/56; PULSE 59; RESP 18; TEMP 36.7; O2SAT 96
[2020-03-27 06:00] VITALS: BP 109/55; PULSE 59; RESP 18; TEMP 36.3; O2SAT 98
[2020-03-27] MEDS: LEVOTHYROXINE SODIUM 75 MCG TABLET PO (06:27)
[2020-03-27 06:48] LABS: Glucose Point of Care 94 (65-105)
[2020-03-27] MEDS: FLUOXETINE HCL 20 MG CAP PO (09:48)
[2020-03-27] MEDS: NITROFURANTOIN MONOHYD MACROCR 100 MG CAP PO ×2 (09:49→21:10)
[2020-03-27] MEDS: FERROUS SULFATE 324 MG TABLET PO (09:49)
[2020-03-27] MEDS: ENOXAPARIN 40 MG/0.4 ML SYRINGE SUB-Q ×2 (09:49→21:07)
--- NOTE | 2020-03-27 10:39 | WPDNEURORHBP ---
Subjective Date/time seen: 03/27/20 10:39 Interval history: this 59-year-old diabetic noncompliant is here after having have left BKA which was necessitated because of the gangrene and the leg was not salvageable the patient has urinary tract infection and urinary incontinence has been followed by the urologist and she is on nitrofurantoin for the E coli she has in her urine which is sensitive to nitrofurantoin she is also on the Septra DS I suspect for her gangrenous foot prior to having left BKA and her stump is also not quite healthy Beside the urinary incontinence of pain is controlled at least under control she denies any headache nausea vomiting chest pain shortness of breath fever chills sore throat Review of Systems Review of Systems: All systems reviewed & are unremarkable except as noted in HPI and below Functional Status Ambulation Ability Ambulation Assistive Devices: Parallel Bars Transfers Ability Ability to Transfer In/Out of Chair: Standby Assistance Exam Const: General: comfortable and no acute distress HENMT: General nose exam: Normal nares present Mouth: Yes moist mucous membranes Eyes: General: appearance normal, both eyes and all related structures Neck: Neck: supple and no JVD Resp: Effort & Inspection: normal respiratory effort Auscultation: clear to auscultation bilaterally Cardio: Rate: regular rate Rhythm: regular rhythm GI: GI Palp: Yes Soft to palpation Auscultation: normal bowel sounds : Other: patient is incontinent most likely due to UTI her obesity and probably diabetic autonomic dysfunction Skin: General skin exam: normal color and no rashes or lesions noted Neuro: Other: patient is awake and alert well oriented has normal speech and language function normal cranial examination weakness of the strength weakness and strength of the both upper lower extremities related to diabetic peripheral neuropathy and her sedentary habits Extrem: Other: left BKA Psych: Mental Status: mental status grossly normal Objective Data Vital Signs Vital Signs: Vital Signs - 24 hr 03/26/20 14:00 03/26/20 22:00 03/27/20 06:00 Temperature 36.7 C 36.7 C 36.3 C L Pulse Rate 64 59 L 59 L Respiratory Rate 18 18 18 Blood Pressure 85/42 L 100/56 L 109/55 L Pulse Oximetry 94 96 98 Intake/Output Intake/Output: Intake & Output 03/24/20 03/25/20 03/26/20 03/27/20 23:59 23:59 23:59 23:59 Intake Total 720 500 720 Balance 720 500 720 Meds/Results Medications: Active Medications Generic Name Dose Route Start Last Admin Trade Name Freq PRN Reason Stop Dose Admin Alprazolam 1 mg 03/21/20 19:25 03/25/20 21:43 Xanax PO 1 mg TID PRN Administration Anxiety Dextrose 12.5 gm 03/21/20 18:59 Dextrose 50% Syringe IV PUSH PRN PRN Hypoglycemia Protocol Enoxaparin Sodium 40 mg 03/22/20 21:00 03/27/20 09:49 Lovenox SUB-Q 40 mg Q12HR SULTANA Administration Ferrous Sulfate 324 mg 03/21/20 21:00 03/27/20 09:49 Ferrous Sulfate PO 324 mg DAILY SULTANA Administration Fluoxetine HCl 20 mg 03/22/20 09:00 03/27/20 09:48 Prozac PO 20 mg DAILY SUL[facility]NA Administration Glucagon 1 mg 03/21/20 18:59 Glucagon For Inj IM PRN PRN Hypoglycemia Protocol Glucose 15 gm 03/21/20 18:59 Glutose 15 PO PRN PRN Hypoglycemia Protocol Dextrose 1,000 mls @ 100 mls/hr 03/21/20 18:59 Dextrose 5% 1,000 Ml IVPB PRN PRN Hypoglycemia Protocol Insulin Aspart 4 - 8 units 03/22/20 08:00 03/26/20 17:32 Novolog SUB-Q Not Given TIDWM [facility] Protocol Insulin Glargine 24 units 03/21/20 21:00 03/26/20 21:16 Lantus SUB-Q 24 units HS S[facility]NA Administration Levothyroxine Sodium 75 mcg 03/22/20 06:30 03/27/20 06:27 Synthroid PO 75 mcg DAILY@0630 SULTANA Administration Mirtazapine 30 mg 03/26/20 21:00 03/26/20 21:15 Remeron PO 30 mg HS SULTANA Administration Nitrofurantoin Mac
[2020-03-27 11:56] LABS: Glucose Point of Care 102 (65-105)
[2020-03-27] MEDS: TOLNAFTATE 1% POWDER 45 GM BTL 1 APPLIC TOPICAL ×2 (12:35→21:19)
[2020-03-27 14:00] VITALS: BP 98/56; PULSE 98; RESP 20; TEMP 36.7; O2SAT 98
[2020-03-27] MEDS: ONDANSETRON HCL ODT 4 MG TABLET PO (15:00)
[2020-03-27 17:02] LABS: Glucose Point of Care 147 (65-105)
[2020-03-27] MEDS: SENNA/DOCUSATE SODIUM TABLET 1 TAB PO (21:07)
[2020-03-27] MEDS: MIRTAZAPINE 30 MG TABLET PO (21:09)
[2020-03-27] MEDS: INSULIN GLARGINE (*BKC) 100 UNITS/ML 24 UNITS SUB-Q (21:13)
[2020-03-27 21:35] LABS: Glucose Point of Care 96 (65-105)
[2020-03-27 22:00] VITALS: BP 90/47; PULSE 57; RESP 18; TEMP 36.7; O2SAT 97
[2020-03-28] MEDS: LEVOTHYROXINE SODIUM 75 MCG TABLET PO (05:58)
[2020-03-28 06:00] VITALS: BP 104/51; PULSE 55; RESP 16; TEMP 36.1; O2SAT 96
[2020-03-28 06:37] LABS: Glucose Point of Care 87 (65-105)
[2020-03-28] MEDS: ENOXAPARIN 40 MG/0.4 ML SYRINGE SUB-Q ×2 (09:21→20:55)
[2020-03-28] MEDS: FERROUS SULFATE 324 MG TABLET PO (09:21)
[2020-03-28] MEDS: ONDANSETRON HCL ODT 4 MG TABLET PO ×2 (09:21→10:38)
[2020-03-28] MEDS: FLUOXETINE HCL 20 MG CAP PO (09:21)
[2020-03-28] MEDS: TOLNAFTATE 1% POWDER 45 GM BTL 1 APPLIC TOPICAL ×2 (09:22→20:58)
[2020-03-28] MEDS: NITROFURANTOIN MONOHYD MACROCR 100 MG CAP PO ×2 (09:22→20:57)
[2020-03-28 12:22] LABS: Glucose Point of Care 108 (65-105)
[2020-03-28] MEDS: ONDANSETRON HCL ODT 4 MG TABLET (12:47)
--- NOTE | 2020-03-28 13:05 | PCDIET ---
Nutrition Follow-Up Complete: Nutrition Diagnosis: Altered nutrition related labs related to diabetes mellitus as evidenced by serum glucose of 184mg/dL. Nutrition Goal: Patient to consume 75% of meals or greater. Goal in progress, as intakes averaged 70% of meals since last review on regular diet. Last recorded weight is 104.6 kg. Recommend obtaining new weight. Bowel Motility: BM x 1 on 03/26/20. Labs Reviewed: Glu (108) Meds Noted: Ferrous Sulfate, Novolog, Lantus, Remeron, Senokot, Septra Additional Notes: Left leg surgical incision. No documented pressure ulcers. Will continue to monitor with same goal. Nutrition Monitoring and Evaluation: Follow up every 7 days.
[2020-03-28 14:00] VITALS: BP 103/54; PULSE 56; RESP 20; TEMP 36.9; O2SAT 93
--- NOTE | 2020-03-28 14:16 | WPDNEURORHBP ---
Subjective Date/time seen: 03/28/20 14:16 Interval history: this 59-year-old diabetic woman with chronic renal dysfunction for whom she has not seen any nephrology CS but in the process of seeing 1 is here because of left BKA and also has had at least a few years ago the amputation of the toes of the right foot she denies any headache nausea vomiting chest pain shortness of breath fever chills sore throat she continues to have the pain and discomfort in her lower back and tells me that she has been sedentary at home and does most of the stove while being in the wheelchair she also said that she cannot walk too much with hopping Review of Systems Review of Systems: All systems reviewed & are unremarkable except as noted in HPI and below Functional Status Ambulation Ability Ambulation Assistive Devices: Parallel Bars Transfers Ability Ability to Transfer In/Out of Chair: Standby Assistance Exam Const: General: comfortable and no acute distress HENMT: General nose exam: Normal nares present Mouth: Yes moist mucous membranes Eyes: General: appearance normal, both eyes and all related structures Neck: Neck: supple and no JVD Resp: Effort & Inspection: normal respiratory effort Auscultation: clear to auscultation bilaterally Cardio: Rate: regular rate Rhythm: regular rhythm GI: GI Palp: Yes Soft to palpation Auscultation: normal bowel sounds Skin: General skin exam: normal color and no rashes or lesions noted Neuro: Other: patient is awake and alert well oriented norm normal speech and language function lower extremity stents are decreased left BKA is stable right foot has toes amputated Extrem: Other: left BKA and also removal of the toes on the right foot Psych: Mental Status: mental status grossly normal Objective Data Vital Signs Vital Signs: Vital Signs - 24 hr 03/28/20 22:00 03/29/20 06:00 Temperature 37.1 C 37.1 C Pulse Rate 58 L 58 L Respiratory Rate 18 18 Blood Pressure 91/43 L 91/43 L Pulse Oximetry 99 99 Intake/Output Intake/Output: Intake & Output 03/26/20 03/27/20 03/28/20 03/29/20 23:59 23:59 23:59 23:59 Intake Total 720 480 840 Balance 720 480 840 Meds/Results Medications: Active Medications Generic Name Dose Route Start Last Admin Trade Name Freq PRN Reason Stop Dose Admin Alprazolam 1 mg 03/21/20 19:25 03/25/20 21:43 Xanax PO 1 mg TID PRN Administration Anxiety Dextrose 12.5 gm 03/21/20 18:59 Dextrose 50% Syringe IV PUSH PRN PRN Hypoglycemia Protocol Enoxaparin Sodium 40 mg 03/22/20 21:00 03/29/20 08:57 Lovenox SUB-Q 40 mg Q12HR SULTANA Administration Ferrous Sulfate 324 mg 03/21/20 21:00 03/29/20 08:58 Ferrous Sulfate PO 324 mg DAILY SULTANA Administration Fluoxetine HCl 20 mg 03/22/20 09:00 03/29/20 08:58 Prozac PO 20 mg DAILY [facility] Administration Glucagon 1 mg 03/21/20 18:59 Glucagon For Inj IM PRN PRN Hypoglycemia Protocol Glucose 15 gm 03/21/20 18:59 Glutose 15 PO PRN PRN Hypoglycemia Protocol Dextrose 1,000 mls @ 100 mls/hr 03/21/20 18:59 Dextrose 5% 1,000 Ml IVPB PRN PRN Hypoglycemia Protocol Insulin Aspart 4 - 8 units 03/22/20 08:00 03/29/20 11:52 Novolog SUB-Q Not Given TIDWM [facility] Protocol Insulin Glargine 24 units 03/21/20 21:00 03/28/20 21:00 Lantus SUB-Q 24 units HS [facility] Administration Levothyroxine Sodium 75 mcg 03/22/20 06:30 03/29/20 06:05 Synthroid PO 75 mcg DAILY@0630 SULTANA Administration Mirtazapine 30 mg 03/26/20 21:00 03/28/20 20:57 Remeron PO 30 mg HS [facility] Administration Nitrofurantoin Macrocrystals 100 mg 03/25/20 21:00 03/29/20 08:58 Macrobid PO 04/01/20 09:01 100 mg Q12HR SULTANA Administration Ondansetron HCl 8 mg 03/28/20 10:27 Zofran Odt PO Q6H PRN Nausea And Vomiting Oxycodone HCl 30 mg 03/21/20 21:00 03/29/20 08:57 Oxycontin Sr
[2020-03-28 17:03] LABS: Glucose Point of Care 93 (65-105)
[2020-03-28] MEDS: SENNA/DOCUSATE SODIUM TABLET 1 TAB PO (20:56)
[2020-03-28] MEDS: MIRTAZAPINE 30 MG TABLET PO (20:57)
[2020-03-28] MEDS: INSULIN GLARGINE (*BKC) 100 UNITS/ML 24 UNITS SUB-Q (21:00)
[2020-03-28 22:00] VITALS: BP 91/43; PULSE 58; RESP 18; TEMP 37.1; O2SAT 99
[2020-03-28 23:08] LABS: Glucose Point of Care 106 (65-105)
[2020-03-29 04:34] LABS: Basophils Absolute Auto 0.1 K/mm3 (0.0-0.1); Basophils Percent Auto 1.1 % (0.2-1.2); Eosinophils Absolute Auto 0.6 K/mm3 (0-0.3); Eosinophils Percent Auto 7.3 % (0-4.4); Hemoglobin 9.9 g/dL (12.0-15.0); Immature Granulocyte Absolute 0.06 K/mm3 (0.00-0.031); Immature Granulocyte Percent A 0.7 % (0-0.5); Lymphocytes Absolute Auto 4.79 K/mm3 (0.9-3.2); Lymphocytes Percent Auto 56.6 % (18.3-44.2); Mean Corpuscular Hemoglobin 25.3 pg (26-34); Mean Corpuscular Volume 84.2 fl (80-100); Mean Platelet Volume 10.6 fl (7.4-10.4); Monocytes Absolute Auto 0.7 K/mm3 (0.1-0.6); Monocytes Percent Auto 8.6 % (2.6-8.5); Neutrophils Absolute Auto 2.2 K/mm3 (1.3-6.7); Neutrophils Percent Auto 25.7 % (45.5-73.1); Platelet Count Result 278 k/mm3 (150-375); Red Blood Count 3.92 M/mm3 (4.2-5.4); Red Cell Distribution Width 16.5 % (11.5-14.5); White Blood Count 8.5 K/mm3 (4.5-10.0)
[2020-03-29 04:54] LABS: Blood Urea Nitrogen 48 mg/dL (7-17); Carbon Dioxide 22 mmol/L (22-30); Chloride 110 mmol/L (98-107); Estimated CRCL calculation 30 ml/min; Estimated Glomerular Filt Rate 20; Glucose 85 mg/dL (65-105); Potassium 5.5 mmol/L (3.4-5.0); Sodium 137 mmol/L (137-145)
[2020-03-29 06:00] VITALS: BP 91/43; PULSE 58; RESP 18; TEMP 37.1; O2SAT 99
[2020-03-29] MEDS: LEVOTHYROXINE SODIUM 75 MCG TABLET PO (06:05)
[2020-03-29 06:43] LABS: Glucose Point of Care 87 (65-105)
[2020-03-29 08:13] LABS: Glucose Point of Care 87 (65-105)
[2020-03-29] MEDS: ENOXAPARIN 40 MG/0.4 ML SYRINGE SUB-Q ×2 (08:57→20:28)
[2020-03-29] MEDS: NITROFURANTOIN MONOHYD MACROCR 100 MG CAP PO ×2 (08:58→20:29)
[2020-03-29] MEDS: FLUOXETINE HCL 20 MG CAP PO (08:58)
[2020-03-29] MEDS: FERROUS SULFATE 324 MG TABLET PO (08:58)
[2020-03-29] MEDS: TOLNAFTATE 1% POWDER 45 GM BTL 1 APPLIC TOPICAL ×2 (09:03→20:29)
[2020-03-29 12:11] LABS: Glucose Point of Care 135 (65-105)
[2020-03-29 14:00] VITALS: BP 101/54; PULSE 63; RESP 19; TEMP 36.2; O2SAT 96
--- NOTE | 2020-03-29 16:00 | WPDNEURORHBP ---
Subjective Date/time seen: 03/29/20 16:00 Interval history: patient is stable she has been sedentary at home and is very difficult for her to deal with left BKA and walk added issue is the previous right foot partial amputation along with the peripheral neuropathy she is overall stable denies any headache vomiting fever chills sore throat it analyst nausea has resolved Review of Systems Review of Systems: All systems reviewed & are unremarkable except as noted in HPI and below Functional Status Ambulation Ability Ambulation Assistive Devices: Parallel Bars Transfers Ability Ability to Transfer In/Out of Chair: Standby Assistance Exam Const: General: comfortable and no acute distress HENMT: General nose exam: Normal nares present Mouth: Yes moist mucous membranes Eyes: General: appearance normal, both eyes and all related structures Neck: Neck: supple and no JVD Resp: Effort & Inspection: normal respiratory effort Auscultation: clear to auscultation bilaterally Cardio: Rate: regular rate Rhythm: regular rhythm GI: GI Palp: Yes Soft to palpation Auscultation: normal bowel sounds Skin: General skin exam: normal color and no rashes or lesions noted Neuro: Other: patient is awake alert were oriented has normal speech and language functions generalized weakness related to both upper lower extremities due to peripheral neuropathy and sedentary habits Extrem: Other: right partial foot amputation left [id number] amputation Psych: Mental Status: mental status grossly normal Objective Data Vital Signs Vital Signs: Vital Signs - 24 hr 03/28/20 22:00 03/29/20 06:00 03/29/20 14:00 Temperature 37.1 C 37.1 C 36.2 C L Pulse Rate 58 L 58 L 63 Respiratory Rate 18 18 19 Blood Pressure 91/43 L 91/43 L 101/54 L Pulse Oximetry 99 99 96 Intake/Output Intake/Output: Intake & Output 03/26/20 03/27/20 03/28/20 03/29/20 23:59 23:59 23:59 23:59 Intake Total 720 480 840 480 Balance 720 480 840 480 Meds/Results Medications: Active Medications Generic Name Dose Route Start Last Admin Trade Name Freq PRN Reason Stop Dose Admin Alprazolam 1 mg 03/21/20 19:25 03/25/20 21:43 Xanax PO 1 mg TID PRN Administration Anxiety Dextrose 12.5 gm 03/21/20 18:59 Dextrose 50% Syringe IV PUSH PRN PRN Hypoglycemia Protocol Enoxaparin Sodium 40 mg 03/22/20 21:00 03/29/20 08:57 Lovenox SUB-Q 40 mg Q12HR SULTANA Administration Ferrous Sulfate 324 mg 03/21/20 21:00 03/29/20 08:58 Ferrous Sulfate PO 324 mg DAILY SUL[facility]NA Administration Fluoxetine HCl 20 mg 03/22/20 09:00 03/29/20 08:58 Prozac PO 20 mg DAILY SUL[place]NA Administration Glucagon 1 mg 03/21/20 18:59 Glucagon For Inj IM PRN PRN Hypoglycemia Protocol Glucose 15 gm 03/21/20 18:59 Glutose 15 PO PRN PRN Hypoglycemia Protocol Dextrose 1,000 mls @ 100 mls/hr 03/21/20 18:59 Dextrose 5% 1,000 Ml IVPB PRN PRN Hypoglycemia Protocol Insulin Aspart 4 - 8 units 03/22/20 08:00 03/29/20 11:52 Novolog SUB-Q Not Given TIDWM [facility] Protocol Insulin Glargine 24 units 03/21/20 21:00 03/28/20 21:00 Lantus SUB-Q 24 units HS [facility] Administration Levothyroxine Sodium 75 mcg 03/22/20 06:30 03/29/20 06:05 Synthroid PO 75 mcg DAILY@0630 SULTANA Administration Mirtazapine 30 mg 03/26/20 21:00 03/28/20 20:57 Remeron PO 30 mg HS [facility] Administration Nitrofurantoin Macrocrystals 100 mg 03/25/20 21:00 03/29/20 08:58 Macrobid PO 04/01/20 09:01 100 mg Q12HR SULTANA Administration Ondansetron HCl 8 mg 03/28/20 10:27 Zofran Odt PO Q6H PRN Nausea And Vomiting Oxycodone HCl 30 mg 03/21/20 21:00 03/29/20 08:57 Oxycontin Sr 12hr PO 30 mg Q12HR SULTANA Administration Oxycodone/Acetaminophen 1 tablet 03/22/20 12:00 03/29/20 11:52 Percocet 5-325 Mg PO 1 tablet 1200,1600 SULTANA Administration Se
[2020-03-29 17:42] LABS: Glucose Point of Care 148 (65-105)
[2020-03-29] MEDS: ALPRAZOLAM 0.5 MG TABLET 1 MG PO (18:16)
[2020-03-29] MEDS: SENNA/DOCUSATE SODIUM TABLET 1 TAB PO (20:28)
[2020-03-29] MEDS: MIRTAZAPINE 30 MG TABLET PO (20:28)
[2020-03-29] MEDS: INSULIN GLARGINE (*BKC) 100 UNITS/ML 24 UNITS SUB-Q (20:36)
[2020-03-29 20:42] LABS: Glucose Point of Care 133 (65-105)
[2020-03-29 22:00] VITALS: BP 113/69; PULSE 54; RESP 18; TEMP 37.1; O2SAT 98
[2020-03-30 06:00] VITALS: BP 117/65; PULSE 57; RESP 16; TEMP 36.2; O2SAT 97
[2020-03-30] MEDS: LEVOTHYROXINE SODIUM 75 MCG TABLET PO (06:11)
[2020-03-30 06:16] LABS: Glucose Point of Care 101 (65-105)
[2020-03-30 08:00] VITALS: PULSE 57; RESP 16; O2SAT 97
[2020-03-30] MEDS: ENOXAPARIN 40 MG/0.4 ML SYRINGE SUB-Q ×2 (08:54→21:04)
[2020-03-30] MEDS: FERROUS SULFATE 324 MG TABLET PO (08:55)
[2020-03-30] MEDS: TOLNAFTATE 1% POWDER 45 GM BTL 1 APPLIC TOPICAL ×2 (08:55→21:04)
[2020-03-30] MEDS: NITROFURANTOIN MONOHYD MACROCR 100 MG CAP PO ×2 (08:55→21:04)
[2020-03-30] MEDS: FLUOXETINE HCL 20 MG CAP PO (08:55)
[2020-03-30] MEDS: ONDANSETRON HCL ODT 4 MG TABLET 8 MG PO (09:15)
[2020-03-30 12:24] LABS: Glucose Point of Care 138 (65-105)
[2020-03-30 14:00] VITALS: BP 105/58; PULSE 70; RESP 18; TEMP 36.9; O2SAT 97
[2020-03-30 16:53] LABS: Glucose Point of Care 131 (65-105)
[2020-03-30] MEDS: MIRTAZAPINE 30 MG TABLET PO (21:03)
[2020-03-30] MEDS: SENNA/DOCUSATE SODIUM TABLET 1 TAB PO (21:04)
[2020-03-30] MEDS: ALPRAZOLAM 0.5 MG TABLET 1 MG PO (21:04)
[2020-03-30] MEDS: INSULIN GLARGINE (*BKC) 100 UNITS/ML 24 UNITS SUB-Q (21:12)
[2020-03-30 21:23] LABS: Glucose Point of Care 143 (65-105)
[2020-03-30 22:00] VITALS: BP 121/67; PULSE 60; RESP 16; TEMP 36; O2SAT 97
[2020-03-31 06:00] VITALS: BP 103/56; PULSE 64; RESP 17; TEMP 36.2; O2SAT 97
[2020-03-31] MEDS: LEVOTHYROXINE SODIUM 75 MCG TABLET PO (06:00)
[2020-03-31 06:53] LABS: Glucose Point of Care 144 (65-105)
[2020-03-31] MEDS: ONDANSETRON HCL ODT 4 MG TABLET 8 MG PO (09:39)
[2020-03-31] MEDS: ENOXAPARIN 40 MG/0.4 ML SYRINGE SUB-Q ×2 (09:40→21:03)
[2020-03-31] MEDS: FLUOXETINE HCL 20 MG CAP PO (09:40)
[2020-03-31] MEDS: FERROUS SULFATE 324 MG TABLET PO (09:40)
[2020-03-31] MEDS: TOLNAFTATE 1% POWDER 45 GM BTL 1 APPLIC TOPICAL ×2 (09:41→21:00)
--- NOTE | 2020-03-31 10:09 | PM.CNNEP ---
Assessment and Plan Assessment and plan (1) Acute kidney failure, unspecified: Code(s): N17.9 - Acute kidney failure, unspecified Status: Acute Assessment and Plan: Patient has acute kidney injury. It is unclear whether she has a chronic underlying kidney disease or not. She does have proteinuria, however, so I suspect that she probably has some component of diabetic nephropathy. The patient's creatinine is higher. The patient had a UTI. I doubt if this is causing her creatinine to be higher but could lead to poor intake. Will try little bit of IV fluids. She is on nitrofurantoin. But because of the elevated creatinine we need to stop this. She has been on this for 6 days so I will just recheck her urine to see if she still has an infection. The patient is on Trimethoprim. This can lead to an increased creatinine because of decreased tubular secretion. The sulfamethoxazole, component could also cause allergic interstitial nephritis. She does not have a rash. Will check eosinophils. I doubt if she has ATN. Her blood pressure has been a bit soft at times. I do not think low enough to cause ATN, Other causes include obstruction, glomerulonephritis. Will watch for these as well. (2) Diabetes mellitus: Code(s): E11.9 - Type 2 diabetes mellitus without complications Status: Acute Assessment and Plan: The patient has diabetes. She says the her A1c generally runs around 10 or 11. (3) Below-knee amputation of left lower extremity: Code(s): S88.112A - Complete traumatic amputation at level between knee and ankle, left lower leg, initial encounter Status: Acute Assessment and Plan: Getting physical therapy. (4) Diabetic neuropathy: Code(s): E11.40 - Type 2 diabetes mellitus with diabetic neuropathy, unspecified Status: Acute Assessment and Plan: On no agents for this. (5) Anemia: Code(s): D64.9 - Anemia, unspecified Status: Acute Assessment and Plan: Hemoglobin is a bit low. No need for iron studies because she is on antibiotics. Will keep an eye on this. Her hemoglobin actually increased during the hospital stay so no need for Epogen History of Present Illness Reason for Consult Consult date: 03/31/20 Chief Complaint Chief complaint: L BKA History of Present Illness Narrative: Mckenzie is a very pleasant 59-year-old lady who has multiple medical problems including diabetes, tender area, GERD, urinary tract infection, who was admitted to the [facility] on March 05. This is for a poorly healing wound on the left foot. This was evaluated and eventually led to a [id number] amputation. She was given an extended course of antibiotics. She was told to take Bactrim for 30 days. Apparently she has chronic kidney disease according to nursing but the patient says she has never seen a kidney doctor. She does not have any bloody urine foamy urine kidney stones bladder infections. She is not taking any nonsteroidal anti-inflammatory agents. On admission her elevated at 1.8. More recently her creatinine has risen to 2.5 so renal consultation was requested. The patient was diagnosed with a UTI by Evelin Khanna and placed on nitrofurantoin. She was having dysuria but is not having that anymore. Patient has no skin rash joint pains chest pain or shortness of breath. She has no swelling. She is not on diuretics. [facility] Past Medical History Medical History Chronic pain syndrome Diabetes mellitus Diabetic neuropathy Narcotic dependence Osteomyelitis of left foot Partial nontraumatic amputation of right foot Family History Family History Grandparent Cancer Mother Pancreatic cancer Social History Social History Smoking status: Never smoker Second hand
[2020-03-31 11:59] LABS: Creatine Kinase 21 U/L (30-135)
--- NOTE | 2020-03-31 12:04 | WPDNEURORHBP ---
Subjective Date/time seen: s/p LAURENCE with right foot partial amputation and underlying neuropathy no additional hnfcooseid34/07/20 12:04 Review of Systems Review of Systems: All systems reviewed & are unremarkable except as noted in HPI and below Functional Status Ambulation Ability Ambulation Assistive Devices: Parallel Bars Transfers Ability Ability to Transfer In/Out of Chair: Standby Assistance Exam Const: General: cooperative, comfortable and no acute distress Nutritional Appearance: overweight Orientation/consciousness: patient oriented x3 HENMT: Head: normal to inspection Eyes: General: appearance normal, both eyes and all related structures Neck: Neck: full ROM Resp: Effort & Inspection: able to speak in complete sentences Auscultation: clear to auscultation bilaterally Cardio: Rate: regular rate Rhythm: regular rhythm GI: Auscultation: normal bowel sounds Neuro: General: patient oriented x3, moves all extremities and CN's II-XI intact bilaterally Cranial nerves: Yes CN's II-XII intact bilaterally, Yes Bilaterally intact EOM present, Yes Nystagmus not present, Yes Normal facial strength present, Yes Midline tongue present, Yes Ability to bilaterally rotate head present and Yes Ability to bilaterally elevate shoulders present Cognition (Neuro): normal cognition Speech: normal speech Gait exam (Neuro): Unable to assess gait Motor exam (neuro): Abnormal motor strength present Sensory Exam: Sensory deficit (Neuro) Plantar Reflex Responses: downgoing: bilateral Psych: Appearance: grossly normal Objective Data Vital Signs Vital Signs: Vital Signs - 24 hr 03/30/20 14:00 03/30/20 22:00 03/31/20 06:00 Temperature 36.9 C 36.0 C L 36.2 C L Pulse Rate 70 60 64 Respiratory Rate 18 16 17 Blood Pressure 105/58 L 121/67 103/56 L Pulse Oximetry 97 97 97 Intake/Output Intake/Output: Intake & Output 03/28/20 03/29/20 03/30/20 03/31/20 23:59 23:59 23:59 23:59 Intake Total 581 085 4490 480 Balance 496 340 3854 480 Meds/Results Medications: Active Medications Generic Name Dose Route Start Last Admin Trade Name Freq PRN Reason Stop Dose Admin Alprazolam 1 mg 03/21/20 19:25 03/30/20 21:04 Xanax PO 1 mg TID PRN Administration Anxiety Dextrose 12.5 gm 03/21/20 18:59 Dextrose 50% Syringe IV PUSH PRN PRN Hypoglycemia Protocol Enoxaparin Sodium 40 mg 03/22/20 21:00 03/31/20 09:40 Lovenox SUB-Q 40 mg Q12HR SULTANA Administration Ferrous Sulfate 324 mg 03/21/20 21:00 03/31/20 09:40 Ferrous Sulfate PO 324 mg DAILY SULTANA Administration Fluoxetine HCl 20 mg 03/22/20 09:00 03/31/20 09:40 Prozac PO 20 mg DAILY SULTANA Administration Glucagon 1 mg 03/21/20 18:59 Glucagon For Inj IM PRN PRN Hypoglycemia Protocol Glucose 15 gm 03/21/20 18:59 Glutose 15 PO PRN PRN Hypoglycemia Protocol Dextrose 1,000 mls @ 100 mls/hr 03/21/20 18:59 Dextrose 5% 1,000 Ml IVPB PRN PRN Hypoglycemia Protocol Sodium Chloride 1,000 mls @ 100 mls/hr 03/31/20 10:30 Normal Saline Iv IV CONT 03/31/20 20:31 .Q10H SULTANA Insulin Aspart 4 - 8 units 03/22/20 08:00 03/31/20 09:40 Novolog SUB-Q Not Given TIDWM [facility] Protocol Insulin Glargine 24 units 03/21/20 21:00 03/30/20 21:12 Lantus SUB-Q 24 units HS SULTANA Administration Levothyroxine Sodium 75 mcg 03/22/20 06:30 03/31/20 06:00 Synthroid PO 75 mcg DAILY@0630 SULTANA Administration Mirtazapine 30 mg 03/26/20 21:00 03/30/20 21:03 Remeron PO 30 mg HS SULTANA Administration Ondansetron HCl 8 mg 03/28/20 10:27 03/31/20 09:39 Zofran Odt PO 8 mg Q6H PRN Administration Nausea And Vomiting Oxycodone HCl 30 mg 03/21/20 21:00 03/31/20 09:39 Oxycontin Sr 12hr PO 30 mg Q12HR SULTANA Administration Oxycodone/Acetaminophen 1 tablet 03/22/20 12:00 03/30/20 17:05 Percocet 5-325 Mg PO 1 table
[2020-03-31 12:07] LABS: Complement C3 135 mg/dL (88-165)
[2020-03-31 12:12] LABS: Erythrocyte Sedimentation Rate > 140 mm/hr (0-20)
[2020-03-31 12:24] LABS: Add Urine Microscopic? YES; Appearance Urine Cloudy (Clear); Bilirubin Urine Negative (Negative); Blood Urine Negative (Negative); Color Urine Yellow (Yellow); Glucose Urine UA Negative (Negative); Ketones Urine Negative (Negative); Leukocyte Esterase Ur 2+ LEU/UL (NEGATIVE); Mucus Urine Rare /lpf; Nitrate Urine Negative (Negative); Protein Urine Negative (Negative); Specific Grav Ur 1.014 (1.001-1.035); Squamous Epithelial Cell Urine Many /hpf (Few); Urobilinogen Urine Negative mg/dL (<2.0); WBC Clumps Urine Present /HPF; WBC Urine >75 /hpf (0-3)
[2020-03-31 12:45] LABS: Glucose Point of Care 155 (65-105)
[2020-03-31 13:00] LABS: Creatinine Urine 58.9 mg/dL; Total Protein Urine Random 22 mg/dL
[2020-03-31 13:01] LABS: Sodium Urine Random 104 meq/L
[2020-03-31 13:18] LABS: Hepatitis C Virus Antibody Reactive (Negative)
[2020-03-31 14:00] VITALS: BP 120/50; PULSE 60; RESP 16; TEMP 36.4; O2SAT 94
--- NOTE | 2020-03-31 14:00 | PCPTNOTE ---
Patient did not receive full therapy minutes this date due to refusal to transfer out of bed.
[2020-03-31] MEDS: SODIUM CHLORIDE 0.9% IV 1,000 ML 100 ML IV CONT (14:17)
--- NOTE | 2020-03-31 15:03 | PCOTNOTE ---
Pt refused activity out of bed for am and pm session. Pt reported severe nausea and stated she was not getting out of bed today. Per nursing patient has been given nausea medicine and has been eating as usual and ordering snack trays in between meals. Pt did not meet required OT minutes this date for this reason.
--- NOTE | 2020-03-31 17:01 | PC.NURSE ---
Paged Dr. Tucker with no call back as of 5pm.
[2020-03-31 17:19] LABS: Glucose Point of Care 167 (65-105)
[2020-03-31] MEDS: SENNA/DOCUSATE SODIUM TABLET 1 TAB PO (21:03)
[2020-03-31] MEDS: MIRTAZAPINE 30 MG TABLET PO (21:04)
[2020-03-31] MEDS: INSULIN GLARGINE (*BKC) 100 UNITS/ML 24 UNITS SUB-Q (21:10)
[2020-03-31 21:40] LABS: Glucose Point of Care 129 (65-105)
[2020-03-31 22:00] VITALS: BP 113/65; PULSE 63; RESP 16; TEMP 36.4; O2SAT 94
[2020-04-01 04:34] LABS: Basophils Absolute Auto 0.1 K/mm3 (0.0-0.1); Basophils Percent Auto 0.7 % (0.2-1.2); Eosinophils Absolute Auto 0.8 K/mm3 (0-0.3); Eosinophils Percent Auto 8.3 % (0-4.4); Hemoglobin 9.2 g/dL (12.0-15.0); Immature Granulocyte Absolute 0.07 K/mm3 (0.00-0.031); Immature Granulocyte Percent A 0.7 % (0-0.5); Lymphocytes Absolute Auto 5.12 K/mm3 (0.9-3.2); Lymphocytes Percent Auto 53.5 % (18.3-44.2); Mean Corpuscular HGB Conc 29.7 g/dl (32-36); Mean Corpuscular Hemoglobin 25.8 pg (26-34); Mean Corpuscular Volume 87.1 fl (80-100); Mean Platelet Volume 11.2 fl (7.4-10.4); Monocytes Absolute Auto 0.9 K/mm3 (0.1-0.6); Monocytes Percent Auto 9.8 % (2.6-8.5); Neutrophils Absolute Auto 2.6 K/mm3 (1.3-6.7); Platelet Count Result 256 k/mm3 (150-375); Red Blood Count 3.56 M/mm3 (4.2-5.4); Red Cell Distribution Width 16.9 % (11.5-14.5); White Blood Count 9.6 K/mm3 (4.5-10.0)
[2020-04-01 06:00] VITALS: BP 109/60; PULSE 59; RESP 19; TEMP 36.5; O2SAT 97
[2020-04-01] MEDS: LEVOTHYROXINE SODIUM 75 MCG TABLET PO (06:07)
[2020-04-01 06:54] LABS: Glucose Point of Care 109 (65-105)
[2020-04-01 08:45] VITALS: PULSE 64; RESP 18; O2SAT 94
[2020-04-01] MEDS: ONDANSETRON HCL ODT 4 MG TABLET 8 MG PO (09:15)
[2020-04-01] MEDS: ENOXAPARIN 40 MG/0.4 ML SYRINGE SUB-Q ×2 (09:17→20:31)
[2020-04-01] MEDS: FERROUS SULFATE 324 MG TABLET PO (09:17)
[2020-04-01] MEDS: FLUOXETINE HCL 20 MG CAP PO (09:17)
[2020-04-01] MEDS: TOLNAFTATE 1% POWDER 45 GM BTL 1 APPLIC TOPICAL ×2 (09:20→20:33)
--- NOTE | 2020-04-01 09:29 | PCOTNOTE ---
Saba Guevara was evaluated for a drop arm commode on 04/01/20 by this occupational therapist. The drop arm commode will resolve patient's toileting limitations as she will need an elevated surface with removable arm rests for toileting and will be unable to ambulate into bathroom or complete a standing transfer for toileting due to left below knee amputation complicated by left quadriceps repair, peripheral neuropathy, and diabetes. The patient will require use of a sliding board for all commode transfers. The patient reports that her bathroom is not accessible by wheelchair. The drop arm commode will be used at bedside and allow for independence with toileting within the home.
--- NOTE | 2020-04-01 09:30 | PCPTNOTE ---
Saba Guevara was evaluated for a slide board on 04/01/2020 by this physical therapist. The slide board will resolve patient's mobility limitations and will be used for ADL's within the home. The patient can safely use the slide board. ?The slide board will resolve the patient?s mobility deficits, including transfers to and from bed/commode/wheelchair. Светлана Quiroz PT
--- NOTE | 2020-04-01 09:31 | PCPTNOTE ---
Светлана Quiroz PT completed an inpatient rehab wheelchair evaluation on Saba Guevara on 04/01/2020. The patient is unable to safely and independently ambulate household distances due to their current impairments. Their diagnosis is L BKA and their impairments include decreased strength, decreased endurance, decreased range of motion, decreased balance, lower extremity weakness, and ataxia. Saba's weight bearing status is [id number] on the left lower leg. The patient demonstrates significant functional mobility limitations that impair their ability to participate in mobility-related activities of daily living (MRADLs), including toileting, feeding, dressing, grooming, and bathing in the customary locations in the home. These limitations cannot be sufficiently resolved by the use of an appropriately fitted cane or walker. It is recommended that the patient utilize a wheelchair for functional mobility within the home in order to facilitate optimal safety, independence and participation in all MRADL's and adequately access their home environment on a regular basis. The patient's home provides adequate access between rooms, maneuvering space, and surfaces to accommodate the recommended wheelchair. The use of a wheelchair for functional mobility is strongly recommended and the patient is receptive to using the wheelchair. The use of this wheelchair will significantly improve the patient's ability to participate in MRADLS and the patient will use it on a regular basis in the home. This will facilitate optimal safety, independence, and participation. The patient has demonstrated sufficient physical and mental capabilities needed to safely propel a manual wheelchair that is provided in the home during a typical day. Recommended Wheelchair Frame: standard Recommended Wheelchair Size: 20 w x 18 d Recommended Wheelchair Cushion:standard Wheelchair Leg Recommendations: elevating, detachable legrests Elevating legrests are recommended because the patient has a musculoskeletal condition or the presence of a cast or brace which prevents 90 degree flexion at the knee. Elevating legrests are recommended because the patient has significant edema of the lower extremities that requires an elevating legrest. Anti-tippers are recommended due to patient demonstrating increased risk for falls. They would benefit from anti-tippers with added safety and stabilization. Светлана Quiroz PT __6/8/20 Evaluating Therapist Date I agree with and certify that the above recommendation is medically necessary. Referring Physician Date I agree with and certify that the above recommendation is medically necessary. Referring Physician Date
[2020-04-01 14:00] VITALS: BP 84/49; PULSE 65; RESP 18; TEMP 36.5; O2SAT 94
[2020-04-01] MEDS: SENNA/DOCUSATE SODIUM TABLET 1 TAB PO (20:31)
[2020-04-01] MEDS: MIRTAZAPINE 30 MG TABLET PO (20:32)
[2020-04-01] MEDS: INSULIN GLARGINE (*BKC) 100 UNITS/ML 24 UNITS SUB-Q (20:38)
[2020-04-01 20:52] LABS: Glucose Point of Care 116 (65-105)
[2020-04-01 22:00] VITALS: BP 121/62; PULSE 68; RESP 18; TEMP 36.7; O2SAT 97
[2020-04-02 01:05] LABS: Glucose Point of Care 88 (65-105)
[2020-04-02 01:05] LABS: Glucose Point of Care 122 (65-105)
[2020-04-02 06:00] VITALS: BP 103/50; PULSE 59; RESP 18; TEMP 37.2; O2SAT 96
[2020-04-02 06:16] LABS: Albumin Level 3.3 g/dL (3.5-5.1); Blood Urea Nitrogen 60 mg/dL (7-17); Calcium 8.6 mg/dL (8.4-10.2); Carbon Dioxide 22 mmol/L (22-30); Chloride 109 mmol/L (98-107); Estimated CRCL calculation 37 ml/min; Estimated Glomerular Filt Rate 26; Glucose 109 mg/dL (65-105); Phosphorus 4.7 mg/dL (2.5-4.5); Potassium 5.4 mmol/L (3.4-5.0); Sodium 138 mmol/L (137-145)
[2020-04-02] MEDS: LEVOTHYROXINE SODIUM 75 MCG TABLET PO (06:41)
[2020-04-02 07:03] LABS: Glucose Point of Care 103 (65-105)
[2020-04-02 08:00] VITALS: PULSE 59; RESP 18; O2SAT 96
[2020-04-02] MEDS: FERROUS SULFATE 324 MG TABLET PO (09:13)
[2020-04-02] MEDS: FLUOXETINE HCL 20 MG CAP PO (09:13)
[2020-04-02] MEDS: ENOXAPARIN 40 MG/0.4 ML SYRINGE SUB-Q (09:14)
[2020-04-02] MEDS: TOLNAFTATE 1% POWDER 45 GM BTL 1 APPLIC TOPICAL (09:14)
[2020-04-02] MEDS: ONDANSETRON HCL ODT 4 MG TABLET 8 MG PO (09:40)
--- NOTE | 2020-04-02 10:02 | PC.NURSE ---
dressing changed to left stump. no open areas noted to skin. conor intact. no redness, no swelling, no drainage noted. no bruising noted. patient has flaky skin. gauze brenden and coral wrap applied. patient tolerated well.
--- NOTE | 2020-04-02 11:22 | P.PNNP_ITS ---
Progress Note: A&P Assessment and Plan (1) CHRIS (acute kidney injury): Code(s): N17.9 - Acute kidney failure, unspecified Status: Acute Assessment and Plan: * unclear what baseline creatinine is but jossue as high as 2.5mg/dl * suspicion falls on infection (UTI) and possibly fluctuation hemodynamics (relative hypotension) * serologies pending but urine electrolytes not prerenal * urine eosinophils negatve * creatinine a bit better * follow trend (2) CKD (chronic kidney disease): Code(s): N18.9 - Chronic kidney disease, unspecified Status: Acute Assessment and Plan: * baseline creatinine unknown * history reports known CKD (but patient was not aware) * renal ultrasound indicative of some renal insufficiency (bilateral renal atrophy) * suspect due to diabetes and vascular disease * follow-up on pending tests (3) Hyperkalemia: Code(s): E87.5 - Hyperkalemia Status: Acute Assessment and Plan: * mildly elevated * due to CHRIS versus use of Bactrim? - can bactrim be switched to another antibiotic? * follow trend for now (4) Below-knee amputation of left lower extremity: Code(s): S88.112A - Complete traumatic amputation at level between knee and ankle, left lower leg, initial encounter Status: Acute Assessment and Plan: * local wound care * PT/OT Will continue to follow Subjective Date/time seen: 04/02/20 11:22 Exam Narrative: Exam Narrative: General: WD/WN female in NAD Heart: normal S1 and S2; no rub Lungs: clear to auscultation Abdomen: soft, nontender, nondistended, positive bowel sounds Extremities: no cyanosis or clubbing; no edema; left BKA Skin: warm and dry Objective Data Vital Signs Vital Signs: Vital Signs Temp Pulse Resp BP Pulse Ox 04/02/20 06:00 37.2 C 59 L 18 103/50 L 96 04/01/20 22:00 36.7 C 68 18 121/62 97 04/01/20 14:00 36.5 C 65 18 84/49 L 94 Intake/Output Intake/Output: Intake & Output 03/30/20 03/31/20 04/01/20 04/02/20 23:59 23:59 23:59 23:59 Intake Total 1630 600 9211 480 Balance 8798 874 6347 480 Meds/Results Medications: Active Medications Generic Name Dose Route Start Last Admin Trade Name Freq PRN Reason Stop Dose Admin Alprazolam 1 mg 03/21/20 19:25 03/30/20 21:04 Xanax PO 1 mg TID PRN Administration Anxiety Dextrose 12.5 gm 03/21/20 18:59 Dextrose 50% Syringe IV PUSH PRN PRN Hypoglycemia Protocol Enoxaparin Sodium 40 mg 03/22/20 21:00 04/02/20 09:14 Lovenox SUB-Q 40 mg Q12HR SULTANA Administration Ferrous Sulfate 324 mg 03/21/20 21:00 04/02/20 09:13 Ferrous Sulfate PO 324 mg DAILY SULTANA Administration Fluoxetine HCl 20 mg 03/22/20 09:00 04/02/20 09:13 Prozac PO 20 mg DAILY SULTANA Administration Glucagon 1 mg 03/21/20 18:59 Glucagon For Inj IM PRN PRN Hypoglycemia Protocol Glucose 15 gm 03/21/20 18:59 Glutose 15 PO PRN PRN Hypoglycemia Protocol Dextrose 1,000 mls @ 100 mls/hr 03/21/20 18:59 Dextrose 5% 1,000 Ml IVPB
--- NOTE | 2020-04-02 11:22 | PM.PNNEP ---
Progress Note: A&P Assessment and Plan (1) CHRIS (acute kidney injury): Code(s): N17.9 - Acute kidney failure, unspecified Status: Acute Assessment and Plan: unclear what baseline creatinine is but jossue as high as 2.5mg/dl suspicion falls on infection (UTI) and possibly fluctuation hemodynamics (relative hypotension) serologies pending but urine electrolytes not prerenal urine eosinophils negatve creatinine a bit better follow trend (2) CKD (chronic kidney disease): Code(s): N18.9 - Chronic kidney disease, unspecified Status: Acute Assessment and Plan: baseline creatinine unknown history reports known CKD (but patient was not aware) renal ultrasound indicative of some renal insufficiency (bilateral renal atrophy) suspect due to diabetes and vascular disease follow-up on pending tests (3) Hyperkalemia: Code(s): E87.5 - Hyperkalemia Status: Acute Assessment and Plan: mildly elevated due to CHRIS versus use of Bactrim? - can bactrim be switched to another antibiotic? follow trend for now (4) Below-knee amputation of left lower extremity: Code(s): S88.112A - Complete traumatic amputation at level between knee and ankle, left lower leg, initial encounter Status: Acute Assessment and Plan: local wound care PT/OT Will continue to follow Subjective Date/time seen: 04/02/20 11:22 Exam Narrative: Exam Narrative: General: WD/WN female in NAD Heart: normal S1 and S2; no rub Lungs: clear to auscultation Abdomen: soft, nontender, nondistended, positive bowel sounds Extremities: no cyanosis or clubbing; no edema; left BKA Skin: warm and dry Objective Data Vital Signs Vital Signs: Vital Signs Temp Pulse Resp BP Pulse Ox 04/02/20 06:00 37.2 C 59 L 18 103/50 L 96 04/01/20 22:00 36.7 C 68 18 121/62 97 04/01/20 14:00 36.5 C 65 18 84/49 L 94 Intake/Output Intake/Output: Intake & Output 03/30/20 03/31/20 04/01/20 04/02/20 23:59 23:59 23:59 23:59 Intake Total 6009 154 6863 480 Balance 4770 888 5472 480 Meds/Results Medications: Active Medications Generic Name Dose Route Start Last Admin Trade Name Freq PRN Reason Stop Dose Admin Alprazolam 1 mg 03/21/20 19:25 03/30/20 21:04 Xanax PO 1 mg TID PRN Administration Anxiety Dextrose 12.5 gm 03/21/20 18:59 Dextrose 50% Syringe IV PUSH PRN PRN Hypoglycemia Protocol Enoxaparin Sodium 40 mg 03/22/20 21:00 04/02/20 09:14 Lovenox SUB-Q 40 mg Q12HR SULTANA Administration Ferrous Sulfate 324 mg 03/21/20 21:00 04/02/20 09:13 Ferrous Sulfate PO 324 mg DAILY SULTANA Administration Fluoxetine HCl 20 mg 03/22/20 09:00 04/02/20 09:13 Prozac PO 20 mg DAILY SULTANA Administration Glucagon 1 mg 03/21/20 18:59 Glucagon For Inj IM PRN PRN Hypoglycemia Protocol Glucose 15 gm 03/21/20 18:59 Glutose 15 PO PRN PRN Hypoglycemia Protocol Dextrose 1,000 mls @ 100 mls/hr 03/21/20 18:59 Dextrose 5% 1,000 Ml IVPB PRN PRN Hypoglycemia Protocol Insulin Aspart 4 - 8 units 03/22/20 08:00 04/02/20 09:14 Novolog SUB-Q Not Given TIDWM [facility] Protocol Insulin Glargine 24 units 03/21/20 21:00 04/01/20 20:38 Lantus SUB-Q 24 units HS SULTANA Administration Levothyroxine Sodium 75 mcg 03/22/20 06:30 04/02/20 06:41 Synthroid PO 75 mcg DAILY@0630 SULTANA Administration Mirtazapine 30 mg 03/26/20 21:00 04/01/20 20:32 Remeron PO 30 mg HS SULTANA Administration Ondansetron HCl 8 mg 03/28/20 10:27 04/02/20 09:40 Zofran Odt PO 8 mg Q6H PRN Administration Nausea And Vomiting Oxycodone HCl 30 mg 03/21/20 21:00 04/02/20 10:35 Oxycontin Sr 12hr PO 30 mg Q12HR SULTANA Administration Oxycodone/Acetaminophen 1 tablet 03/22/20 12:00 04/01/20 17:19 Percocet 5-325 Mg PO 1 tablet 1200,1600 SC
--- NOTE | 2020-04-02 12:17 | PC.NURSE ---
Saline lock removed from right arm with cannula intact. gauze dressing applied. patient tolerated well.
[2020-04-03 04:16] LABS: Kappa\\Lambda Light Chains 1.82 (0.26-1.65); Lambda Light Chain 116.3 mg/L (5.7-26.3)
[2020-04-04 17:08] LABS: Hepatitis C RNA, Quant PCR 2210000 IU/mL
--- NOTE | 2020-04-06 15:23 | PM.DS ---
DS: Admitting Diagnosis Admitting Diagnosis Admitting Diagnosis: Other acute osteomyelitis, left ankle and foot DS: Discharge Diagnosis Discharge Diagnosis (1) Hyperkalemia: Code(s): E87.5 - Hyperkalemia Status: Acute (2) CHRIS (acute kidney injury): Code(s): N17.9 - Acute kidney failure, unspecified Status: Acute (3) Anemia: Code(s): D64.9 - Anemia, unspecified Status: Acute (4) Acute kidney failure, unspecified: Code(s): N17.9 - Acute kidney failure, unspecified Status: Acute (5) Partial nontraumatic amputation of right foot: Code(s): Z89.431 - Acquired absence of right foot Status: Acute (6) Swelling of joint of lower leg: Code(s): M25.469 - Effusion, unspecified knee Status: Acute (7) Incontinence: Code(s): R32 - Unspecified urinary incontinence Status: Acute (8) Dysuria: Code(s): R30.0 - Dysuria Status: Acute (9) Chronic pain syndrome: Code(s): G89.4 - Chronic pain syndrome Status: Acute (10) Narcotic dependence: Code(s): F11.20 - Opioid dependence, uncomplicated Status: Acute (11) Diabetic neuropathy: Code(s): E11.40 - Type 2 diabetes mellitus with diabetic neuropathy, unspecified Status: Acute (12) Diabetes mellitus: Code(s): E11.9 - Type 2 diabetes mellitus without complications Status: Acute (13) Osteomyelitis of left foot: Code(s): M86.9 - Osteomyelitis, unspecified Status: Acute (14) Below-knee amputation of left lower extremity: Code(s): S88.112A - Complete traumatic amputation at level between knee and ankle, left lower leg, initial encounter Status: Acute DS: Summary Hospital Course Reason for hospitalization: the patient was admitted because of the left [id number] amputation with underlying multiple medical issues as mentioned in the above problem data she received the PT OT gait training and the medical management of her underlying medical issues Hospital Course: after receiving therapy in the training in the medical management she was able to achieve the following independent measures eating independent, oral hygiene patient refused, toileting partial assistance bathing partial assistance upper body dressing setup lower body dressing partial assistance, foot fair partial assistance, rolling in bed independent sitting to lying independent, lying to sitting independent sit to stand partial assistance, chair transfers partial assistance, toilet transfers partial assistance, car transfers patient refused walking 10 feet patient was unable to walking 50 feet with through turns patient was unable to walking 150 feet patient was unable to walking 10 feet uneven surfaces patient was unable to curb her step patient was unable to 4 steps patient was unable to 12 steps patient was unable to p.m. allergic patient is unable to wheelchair 50 feet independent wheelchair 150 feet independent patient was sent home with the home health and no falls were recorded Status at Discharge Cognitive/behavioral status at discharge: patient improved however her motivation was not really great and seems like he has been most of the time sedentary at home and has except the fact that she is going to be sedentary and did not really strive to do as much as she can or is much has I think she has a potential to but she was counseled about it on many occasions Time Spent with Patient Time attestation: Total time spent providing and/or coordinating discharge services: Exam Const: General: comfortable and no acute distress HENMT: General nose exam: Normal nares present Mouth: Yes dry mucous membranes Eyes: General: appearance normal, both eyes and all related structures Neck: Neck: supple and no JVD Resp: Effort & Inspection: normal respiratory effort Auscultation: clear to auscultation bilaterally Cardio: Rate: regular rate Rhythm: regular rhythm GI:
== END 2020-04-02 12:18 | disposition home health service (06) | DRG 560 ==
PROVIDERS: Internal Medicine Nephrology; Psychiatry & Neurology Neurology; Admitting Provider Psychiatry & Neurology Neurology; PCP Emergency Medicine; Visit Provider Psychiatry & Neurology Neurology
DX: Z47.81 Encounter for orthopedic aftercare following surgical amputation (principal); N17.9 Acute kidney failure, unspecified; F11.20 Opioid dependence, uncomplicated; Z89.512 Acquired absence of left leg below knee; D64.9 Anemia, unspecified; E11.42 Type 2 diabetes mellitus with diabetic polyneuropathy; E87.5 Hyperkalemia; E66.9 Obesity, unspecified; E03.9 Hypothyroidism, unspecified; F32.9 Major depressive disorder, single episode, unspecified; G89.4 Chronic pain syndrome; I10 Essential (primary) hypertension; K21.9 Gastro-esophageal reflux disease without esophagitis; R32 Unspecified urinary incontinence; R22.43 Localized swelling, mass and lump, lower limb, bilateral; R30.0 Dysuria; R07.9 Chest pain, unspecified; Z89.411 Acquired absence of right great toe; Z89.421 Acquired absence of other right toe(s); Z98.890 Other specified postprocedural states; Z79.4 Long term (current) use of insulin; Z68.33 Body mass index [BMI] 33.0-33.9, adult
CPT/HCPCS: 36415; 71045; 76775; 80048; 80069; 81001; 82550; 82570; 83883; 84156; 84300; 84484; 85025; 85652; 85999; 86038; 86039; 86160; 86334; 86335; 86803; 87077; 87086; 87088; 87186; 87522; 93005; 93970; 97110; 97162; 97166; 97530; 97535; A9270; J1650; J1815; J7030

== ENCOUNTER 2020-06-02 14:43 | Emergency (ER) | payer OTHER, SELFPAY ==
--- NOTE | ~2020-06-02 | CT_ITS ---
EXAMINATION: CT UE RT w con EXAM DATE: 06/02/2020 18:08 INDICATION: Right arm pain, swelling. TECHNIQUE: Spiral CT UE RT w con was performed following intravenous injection of 100 mL Omnipaque 35 0. Axial, coronal and sagittal images were reviewed. The dose-length product (DLP) for this examina tion was 1279.79 mGy-cm. The exposure was tailored according to patient size (auto mA exposure contr ol), and iterative reconstruction (ASIR) was used as additional dose reduction technique. There is n o prior study for comparison. FINDINGS: Extensive gas along surrounding portions of the right upper arm musculature with extensive fat stranding, and pockets that appear to be at least partially contained fluid collections, abscess. There is smaller amount of gas along the forearm with long abscess extending along the lateral aspec t of the radial shaft. The veins and arteries are enhanced, and there is no evidence of arterial or v enous thrombus. IMPRESSION: Extensive right arm emphysema, likely necrotizing fasciitis with fluid and gas tracking along the anterior aspect of the upper arm and lateral aspect of the forearm, abscess. Recommend jude gent surgical consult. I discussed this case with Jocelyne Pastrana MD at 06/02/2020 18:17 CDT. Reviewed, dictated and finalized at location A. IMPRESSION: Extensive right arm emphysema, likely necrotizing fasciitis with f luid and gas tracking along the anterior aspect of the upper arm and lateral as pect of the forearm, abscess. Recommend emergent surgical consult. I discussed this case with Jocelyne Pastrana MD at 06/02/2020 18:17 CDT.
--- NOTE | ~2020-06-02 | US_ITS ---
EXAMINATION: US venous doppler UE RT EXAM DATE: 06/02/2020 15:43 INDICATION: Right arm pain and swelling. Open sores. TECHNIQUE: Multiple grayscale, color flow, Doppler sonographic images of the right upper extremity ve ins obtained by technologist. Compression was performed where able. There is no prior study for larry carson. FINDINGS: Right upper extremity: Jugular vein: ------------> Normal. Subclavian vein: --------> Normal. Axillary vein:------------> Normal. Brachial vein:-----------> Normal. Basilic vein: ------------> Normal. Cephalic vein: ----------> Normal. Radial vein: ------------> Normal. Ulnar vein: > Normal. IMPRESSION: No deep venous thrombosis of the right upper extremity. Reviewed, dictated and finalized at location A.
[2020-06-02 14:39] VITALS: BP 127/94; PULSE 94; RESP 14; TEMP 36.8; O2SAT 100
[2020-06-02 16:00] VITALS: BP 104/80; PULSE 96; RESP 16; O2SAT 98
[2020-06-02 16:01] LABS: Hemoglobin 11.1 g/dL (12.0-15.0); Mean Corpuscular HGB Conc 30.8 g/dl (32-36); Mean Corpuscular Hemoglobin 25.1 pg (26-34); Mean Corpuscular Volume 81.4 fl (80-100); Mean Platelet Volume 9.8 fl (7.4-10.4); Platelet Count Result 1006 k/mm3 (150-375); Red Blood Count 4.42 M/mm3 (4.2-5.4); Red Cell Distribution Width 15.3 % (11.5-14.5)
[2020-06-02 16:13] LABS: Lactic Acid Reflex 1.7 mmol/L (0.7-2.1)
[2020-06-02 16:15] LABS: Alanine Aminotransferase 28 U/L (4-35); Albumin Level 3.4 g/dL (3.5-5.1); Alkaline Phosphatase 200 U/L (38-126); Anion Gap 9 mmol/L (8-16); Aspartate Amino Transferase 53 U/L (14-36); Bilirubin,Total 0.5 mg/dL (0.2-1.3); Blood Urea Nitrogen 25 mg/dL (7-17); CRP 3.9 mg/dL (<1.0); Calcium 9.5 mg/dL (8.4-10.2); Carbon Dioxide 28 mmol/L (22-30); Chloride 97 mmol/L (98-107); Estimated CRCL calculation 52 ml/min; Estimated Glomerular Filt Rate 39; Glucose 185 mg/dL (65-105); Potassium 5.2 mmol/L (3.4-5.0); Sodium 134 mmol/L (137-145)
[2020-06-02 16:16] LABS: INR 1.1; Prothrombin Time 13.4 Seconds (11.1-14.7)
[2020-06-02 16:17] LABS: Partial Thromboplastin Time 25.9 SECONDS (22.3-36.8)
[2020-06-02 16:22] LABS: Band Neutrophils Percent 7 % (0-6); Eosinophils Absolute Manual 0.36 K/mm3 (0.02-0.5); Eosinophils Percent Manual 3 % (0-4); Lymphocytes Absolute Manual 3.84 K/mm3 (1.1-4.5); Monocytes Absolute Manual 1.08 K/mm3 (0.1-0.90); Monocytes Percent Manual 9 % (3-9); Neutrophils Absolute Manual 6.72 K/mm3 (1.7-7.2); Neutrophils Percent Manual 49 % (46-73); Total Cells Counted 100
[2020-06-02 16:23] LABS: Anisocytosis 2+ (NORMAL); Platelet Estimate Increased (Adequate)
[2020-06-02 17:00] VITALS: BP 122/75; PULSE 87; RESP 16; O2SAT 100
--- NOTE | 2020-06-02 17:00 | WPDCN ---
Assessment and Plan Assessment and plan (1) Wound of right upper extremity: Code(s): S41.101A - Unspecified open wound of right upper arm, initial encounter Status: Acute Assessment and Plan: Exam concerning for necrotizing infection, with subcutaneous emphysema and the presence of necrotic wounds. I requested that Dr. Pastrana obtain a stat CT of the right upper extremity. Based on CT results, the patient was transferred to a tertiary care facility emergently. HPI Data of Consult Date/Time: 06/02/20 17:00 Primary Care Provider: William Trujillo MD Consult Narrative Narrative: Saba Guevara is a 59-year-old female with insulin-dependent diabetes, hypothyroidism, and hypertension whom I was consulted to see in the emergency department for my opinion regarding her right upper extremity wounds and cellulitis. The patient was recently hospitalized at [facility] for such, and was treated with IV antibiotics. She was discharged home recently with home health. A nurse apparently came today to see her, thought the wounds looked worse, and referred her to the emergency department. At the time my evaluation she complains of exquisite pain diffusely throughout the right upper extremity. There are several open areas with malodorous purulent drainage. The patient does not recall any spider bites or injury to the area, and she does not know what may have caused these wounds. She wonders if it is due to her accidentally using a dirty needle that she had previously used to give herself insulin with. She adamantly denies ever using IV drugs. [facility] Past Medical History Medical History Acute kidney failure, unspecified Anemia Chronic pain syndrome Diabetes mellitus Diabetic neuropathy Narcotic dependence Osteomyelitis of left foot Partial nontraumatic amputation of right foot Family History Family History Grandparent Cancer Mother Pancreatic cancer Social History Social History Smoking status: Never smoker Second hand tobacco smoke exposure: No Alcohol intake: never Substance use: never Substance use type: does not use Gender identity (if verbalized by the patient): Female Spiritual care concerns: No Meds Home Medications and Allergies Home Medications Medication Instructions Recorded Confirmed Type Bedside Commode #1 each 03/29/20 Rx Sliding Board #1 each 03/29/20 Rx Wheelchair #1 each 03/29/20 Rx fluoxetine 20 mg PO DAILY #30 tablet 04/01/20 Rx mirtazapine 30 mg PO DAILY #30 tablet 04/01/20 Rx sulfamethoxazole-trimethoprim 1 tablet PO Q12H #24 tablet 04/01/20 Rx tolnaftate 1 applic TOPICAL Q12HR #30 applic 04/01/20 Rx albuterol sulfate [Ventolin HFA] INHALATION 06/02/20 History cholecalciferol (vitamin D3) 50 mcg PO DAILY 06/02/20 History cyclobenzaprine mg 06/02/20 History insulin glargine [Lantus U-100 24 SUBCUT HS 06/02/20 History Insulin] levothyroxine 100 mcg PO DAILY 06/02/20 History lovastatin 40 mg PO DAILY 06/02/20 History oxycodone 30 mg PO Q12H 06/02/20 History patiromer calcium sorbitex 8.4 g PO DAILY 06/02/20 History pregabalin [Lyrica] 200 mg PO BID 06/02/20 History Allergies Allergy/AdvReac Type Severity Reaction Status Date / Time morphine Allergy Unknown Verified 06/02/20 17:59 Vital Signs Vital Signs - 24 hr 06/02/20 14:39 06/02/20 16:00 06/02/20 17:00 Temperature 98.3 F Pulse Rate 94 96 87 Respiratory Rate 14 16 16 Blood Pressure 127/94 H 104/80 122/75 Pulse Oximetry 100 98 100 06/02/20 18:00 06/02/20 19:00 06/02/20 20:38 Temperature 98.2 F Pulse Rate 86 88 98 Respiratory Rate 16 14 20 Blood Pressure 144/89 H 132/96 H 136/82 Pulse Oximetry 100 100 98 Exam Narrative: Exam Narrative: General: Moderately ill-appearing female sitting up in bed in
--- NOTE | 2020-06-02 17:10 | PC.NURSE ---
PT TOOK HOME SUPPLY OF ONE 30MG OXYCODONE TABLET PER [place] BY DR CAPPS.
--- NOTE | 2020-06-02 17:20 | ED.GENADULT ---
HPI - General Adult General Chief complaint: Skin/Abscess/Foreign Body <Jocelyne Pastrana MD - Last Filed: 06/03/20 12:53> Stated complaint: r arm pain <Jocelyne Pastrana MD - Last Filed: 06/03/20 12:53> Time Seen by Provider: 06/02/20 14:57 <Jocelyne Pastrana MD - Last Filed: 06/03/20 12:53> History of Present Illness HPI narrative: Patient is a 59 y/o female complaining entire right arm pain and swelling for approximately 3 weeks. She describes her pain as a burning sensation and rates it as 8/10. She states that movement aggravates her pain and analgesics alleviate it slightly. There is no pain radiation. She denies any fever, chill, vomiting or diarrhea. <Jocelyne Pastrana MD - Last Filed: 06/03/20 12:53> Related Data Home medications: Home Medications Medication Instructions Recorded Confirmed albuterol sulfate [Ventolin HFA] INHALATION 06/02/20 cholecalciferol (vitamin D3) 50 mcg PO DAILY 06/02/20 cyclobenzaprine mg 06/02/20 insulin glargine [Lantus U-100 24 SUBCUT HS 06/02/20 Insulin] levothyroxine 100 mcg PO DAILY 06/02/20 lovastatin 40 mg PO DAILY 06/02/20 oxycodone 30 mg PO Q12H 06/02/20 patiromer calcium sorbitex 8.4 g PO DAILY 06/02/20 pregabalin [Lyrica] 200 mg PO BID 06/02/20 <Jocelyne Pastrana MD - Last Filed: 06/03/20 12:53> Allergies/adverse reactions: Allergies Allergy/AdvReac Type Severity Reaction Status Date / Time morphine Allergy Unknown Verified 06/02/20 17:59 <Jocelyne Pastrana MD - Last Filed: 06/03/20 12:53> Review of Systems Constitutional: Constitutional: Denies chills, Denies fever(s), Denies headache(s) and Denies weakness <Jocelyne Pastrana MD - Last Filed: 06/03/20 12:53> Eyes: Eyes: Denies blurry vision <Jocelyne Pastrana MD - Last Filed: 06/03/20 12:53> ENT: Denies headache(s) and Denies neck pain <Jocelyne Pastrana MD - Last Filed: 06/03/20 12:53> Cardiovascular: Cardiovascular: Denies chest pain and Denies dyspnea <Jocelyne Pastrana MD - Last Filed: 06/03/20 12:53> Respiratory: Respiratory: Denies cough and Denies dyspnea <Jocelyne Pastrana MD - Last Filed: 06/03/20 12:53> Gastrointestinal: Gastrointestinal: Denies abdominal pain, Denies diarrhea, Denies nausea and Denies vomiting <Jocelyne Pastrana MD - Last Filed: 06/03/20 12:53> Genitourinary: Genitourinary: Denies hematuria and Denies dysuria <Jocelyne Pastrana MD - Last Filed: 06/03/20 12:53> Musculoskeletal: Musculoskeletal: Denies back pain, Denies neck pain and Reports other (right arm pain) <Jocelyne Pastrana MD - Last Filed: 06/03/20 12:53> Integumentary/Breasts: Skin/Breast: Reports erythema (right arm) and Reports wounds (right arm) <Jocelyne Pastrana MD - Last Filed: 06/03/20 12:53> Neurologic: Denies headache(s) and Denies weakness <Jocelyne Pastrana MD - Last Filed: 06/03/20 12:53> PMFSH Past Medical History Medical History: Medical History Acute kidney failure, unspecified Anemia Chronic pain syndrome Diabetes mellitus Diabetic neuropathy Narcotic dependence Osteomyelitis of left foot Partial nontraumatic amputation of right foot <Jocelyne Pastrana MD - Last Filed: 06/03/20 12:53> Family History Family History: Family History Grandparent Cancer Mother Pancreatic cancer <Jocelyne Pastrana MD - Last Filed: 06/03/20 12:53> Social History Social History: Social History Smoking status: Never smoker Second hand tobacco smoke exposure: No Alcohol intake: never Substance use: never Substance use type: does not use Gender identity (if verbalized by the patient): Female Spiritual care concerns: No <Jocelyne Pastrana MD - Last Filed: 06/03/20 12:53> Exam Const: General: no acute distress and well developed <Jocelyne Pastrana MD - Last Filed: 06/03/20 12:53> Orientation/consciousness: oriented to person, edgard
[2020-06-02 18:00] VITALS: BP 144/89; PULSE 86; RESP 16; O2SAT 100
[2020-06-02 18:51] LABS: Add Urine Microscopic? YES; Appearance Urine Clear (Clear); Bilirubin Urine Negative (Negative); Blood Urine 2+ (Negative); Color Urine Yellow (Yellow); Glucose Urine UA Negative (Negative); Ketones Urine Negative (Negative); Leukocyte Esterase Ur Negative LEU/UL (Negative); Mucus Urine Rare /lpf; Nitrate Urine Negative (Negative); Protein Urine 1+ mg/dL (Negative); RBC Urine 21-50 /hpf (0-2); Specific Grav Ur 1.017 (1.001-1.035); Squamous Epithelial Cell Urine Few /hpf (Few); WBC Urine 0-3 /hpf
[2020-06-02 18:54] LABS: Reflex Lactic Acid Yes or No Add Lactic
[2020-06-02 19:00] VITALS: BP 132/96; PULSE 88; RESP 14; O2SAT 100
--- NOTE | 2020-06-02 19:32 | PC.NURSE ---
Report to Jeanie PABLO at [facility] ER. called for transport.
[2020-06-02 19:50] LABS: Lactic Acid 1.6 mmol/L (0.7-2.1)
[2020-06-02 20:38] VITALS: BP 136/82; PULSE 98; RESP 20; TEMP 36.8; O2SAT 98
== END 2020-06-02 21:13 | disposition short-term general hospital (02) ==
PROVIDERS: Emergency Medicine Emergency Medical Services; Emergency Provider Emergency Medicine; PCP Emergency Medicine
DX: M72.6 Necrotizing fasciitis (principal); L03.113 Cellulitis of right upper limb; L02.413 Cutaneous abscess of right upper limb; Z79.4 Long term (current) use of insulin; E11.40 Type 2 diabetes mellitus with diabetic neuropathy, unspecified; Z89.431 Acquired absence of right foot; G89.4 Chronic pain syndrome
CPT/HCPCS: 36415; 73201; 80053; 81001; 83605; 85025; 85610; 85730; 86140; 87040; 93971; 96365; 96367; 96375; 99285; J1170; J2543; J3370; Q9967